=== PATIENT | male | born 1935 | race Caucasian/White ===

== ENCOUNTER 2022-02-03 15:05 | Inpatient (IN) ==
[2022-02-03] MEDS ORDERED: methylPREDNISolone 125 MG/2 ML VIAL IV STA (15:52)
[2022-02-03] MEDS ORDERED: ALBUT/IPRATROP 3MG/0.5MG NEB 3 ML VIAL NEB ONE (15:52)
[2022-02-03] MEDS ORDERED: SODIUM CHLORIDE 0.9% 1000ML 500 ML IV SCH (16:00)
--- NOTE | 2022-02-03 16:41 | XRay Report ---
XR humerus LT 2V CLINICAL HISTORY: pain brusing TECHNIQUE: 2 radiographic views of the left humerus were obtained. Comparison: None available at the time of this dictation. FINDINGS: There is no evidence for fracture, subluxation or dislocation. The visualized portion of the shoulder and elbow joints are unremarkable. There is normal bone mineralization. The overlying soft tissues a re unremarkable. IMPRESSION: No acute osseous injury ACT 112: Negative or not required by law. Electronically signed by: Rojelio Mixon M.D. 02/03/2022 4:40 PM
--- NOTE | 2022-02-03 16:42 | XRay Report ---
XR forearm LT 2V CLINICAL HISTORY: pain brusing TECHNIQUE: 2 views of the left forearm were obtained. Comparison: None available at the time of this dictation. FINDINGS: There is no evidence of acute fracture or dislocation. Joint spaces are well-preserved. No soft tissu e abnormality is seen. IMPRESSION: No evidence of acute osseous injury. ACT 112: Negative or not required by law. Electronically signed by: Rojelio Mixon M.D. 02/03/2022 4:41 PM
--- NOTE | 2022-02-03 17:08 | XRay Report ---
XR chest 1V portable CLINICAL HISTORY: Sepsis TECHNIQUE: Single frontal radiograph of the chest was obtained. Comparison: None available at the time of this dictation. FINDINGS: No lines and tubes are seen. Cardiomegaly is noted. The aortic arch is calcified. Prominence and ceph alization of the vasculature is seen. There are scattered airspace opacities throughout the lungs. No evidence of pleural effusion or pneumothorax. IMPRESSION: 1. Cardiomegaly and mild pulmonary edema. 2. Multifocal airspace opacities may represent atelectasis, pneumonia, and/or aspiration. ACT 112: Negative or not required by law. Electronically signed by: Rojelio Mixon M.D. 02/03/2022 5:07 PM
[2022-02-03 17:10] LABS: Base Excess VBG -2.6 mEq/L; HCO3 VBG 24 mmol/L; Hematocrit (blood only) 27.7 % (40.1-51.0); Hemoglobin 9.4 g/dl (14.0-18.0); Mean Corpuscular Hgb Conc 33.9 g/dL (32.0-36.0); Mean Corpuscular Volume 91.4 fL (80.0-100.0); Mean Platelet Volume 10.7 fL (9.4-12.4); Oxygen Saturation VBG < 60.0 %; PCO2 VBG 46 mmHg (38-50); PO2 VBG 24 mmHg; Platelet Count 186 K/uL (130-400); RDW Coefficient of Variation 13.6 % (11.5-14.5); RDW Standard Deviation 45.6 fL (36.4-46.3); Red Blood Count 3.03 M/uL (4.63-6.08); White Blood Count 10.41 K/ul (4.8-10.8); pH VBG 7.32 (7.36-7.41)
[2022-02-03 17:30] LABS: Albumin Level 3.8 gm/dl (3.4-5.0); BUN Creatinine Ratio 19.9 (10-20); Bilirubin Direct 0.4 mg/dl (0-0.2); Bilirubin,Total 1.3 mg/dl (0.2-1.0); Calcium 10.6 mg/dl (8.5-10.1); Creatinine Clr Calc Pharmacy 19.5 ml/min; Est GFR (African American) 35.4 ml/min; Est GFR (Non-African American) 30.5 ml/min; Magnesium 2.2 mg/dl (1.7-2.4); Phosphorus 4.1 mg/dl (2.5-4.9); Potassium 4.6 mmol/L (3.5-5.1); Total Protein 6.3 gm/dl (6.0-8.3)
[2022-02-03 17:50] LABS: Troponin I High Sensitivity 26.2 pg/ml (0-20)
[2022-02-03 18:03] LABS: Acanthocytes 2+; Basophils # (auto) 0.01 K/uL (0-0.2); Basophils % (auto) 0.1 %; Immature Granulocytes # (auto) 0.03 K/uL (0.00-0.02); Immature Granulocytes % (auto) 0.3 %; Lymphocytes # (auto) 0.26 K/uL (1.2-3.4); Lymphocytes % (auto) 2.5 %; Monocytes % (auto) 4.8 %; Neutrophils # (auto) 9.61 K/uL (1.4-6.5); Neutrophils % (auto) 92.3 %
[2022-02-03] MEDS ORDERED: PIPERACILLIN/TAZOBACTAM 4.5 GM/120 ML BAG IV ONE (18:09)
--- NOTE | 2022-02-03 18:31 | Electrocardiogram Report ---
Test Reason : Blood Pressure : / mmHG Vent. Rate : 089 BPM Atrial Rate : 089 BPM P-R Int : 152 ms QRS Dur : 082 ms QT Int : 346 ms P-R-T Axes : 058 -48 030 degrees QTc Int : 420 ms Poor data quality, interpretation may be adversely affected Normal sinus rhythm Left anterior fascicular block Abnormal ECG No previous ECGs available Confirmed by Yan Wolf ([id number]) on 02/03/2022 6:31:41 PM Referred By: Confirmed By:Heraclio Wolf
--- NOTE | 2022-02-03 19:22 | CT Scan Report ---
HEAD CT NONCONTRAST CT DOSE: HISTORY: Altered mental status. TECHNIQUE: Multiaxial CT images of the head were performed without the use of intravenous contrast. A utomated exposure control was utilized for this study. A dose lowering technique was utilized adheri ng to the principles of ALARA. Comparison: None. Findings: Trace fluid levels within the sphenoid sinuses. The mastoid air cells are clear. The calvar ium and skull base are intact. There is no mass, hematoma, midline shift, acute infarct. White matter hypodensity is nonspecific but suggestive of microvascular ischemic change. The ventricles and sulci demonstrate mild age-related involutional changes. Impression: No acute intracranial abnormality. Atrophy and microvascular ischemic changes. Trace fluid within the sphenoid sinuses. ACT 112: Negative or not required by law. Electronically signed by: Alo Zaragoza M.D. 02/03/2022 7:20 PM
[2022-02-03 20:12] LABS: Appearance Urine Clear (Clear); Bacteria Urine Automated Negative (Negative); Bilirubin Urine Negative (Negative); Blood Urine Negative (Negative); Color Urine Dark Yellow; Epithelial Cell Urine Auto 20-30 /lpf (0-5); Glucose Urine UA Negative (Negative); Ketones Urine Trace (Negative); Leukocyte Esterase Urine 1+ (Negative); Nitrite Urine Positive (Negative); Protein Urine Trace (Negative); Specific Gravity Urine 1.019 (1.000-1.030); Urobilinogen Urine Negative (Negative); pH Urine 5.5 (4.5-7.5)
[2022-02-03] MEDS ORDERED: SODIUM CHLORIDE 0.9% 1000ML 1,000 ML IV ONE (20:22)
[2022-02-03 20:34] LABS: Mucus Urine Present (None Prsent); RBC Urine Automated 0-4 /hpf (0-4)
--- NOTE | 2022-02-03 20:39 | CT Scan Report ---
CT chest diagnostic wo con, CT abd pelvis wo con CT DOSE: 2406.06 mGy.cm HISTORY: Shortness of breath, h/o spiculated mass. Elevated bilirubin. TECHNIQUE: Multiaxial CT images of the chest, abdomen, and pelvis were performed without contrast. A dose lowering technique was utilized adhering to the principles of ALARA. COMPARISON: None. FINDINGS: Chest CT: Suboptimal evaluation the chest due to the motion artifact and streak artifact from the pat ient's overlapping arms. No pneumothorax. No pleural effusions. Mild emphysema. Multiple scattered no dular and groundglass patchy airspace opacities most pronounced within the lung bases. This is consis tent with a pneumonia and could be due to acute on chronic aspiration. Partial opacification of the d istal bilateral lower lobe bronchi. There is a 3.7 cm spiculated mass within the left upper lobe whic h results in focal occlusion of the proximal lingular bronchi. The distal lingular bronchi are partia lly opacified. There is a second spiculated mass within the left lower lobe on image 198 measuring 2. 8 cm. Left upper extremity edema with a soft tissue hematoma medially. This appears to represent an i ntramuscular hematoma within the biceps muscle and measures 12 x 6.5 cm. Subcutaneous edema noted wit hin the left lateral chest wall. Calcified mediastinal lymph nodes are noted. No mediastinal lymphade nopathy. The heart is normal in size. No pericardial effusion. Mild calcified plaque within the hugh l caliber thoracic aorta. Moderate to severe esophageal distention with focal transition point at the gastroesophageal junction. The esophagus is filled with debris. Abdomen/pelvis CT: Suboptimal evaluation due to motion artifact and streak artifact from the patient' s overlapping arms. No pneumoperitoneum. No pneumatosis. No suspicious lytic are blastic osseous lesi ons. The unenhanced liver, spleen, adrenal glands, and pancreas are unremarkable. The gallbladder is mildly distended. No gallbladder wall thickening. No hydronephrosis. A 2.2 cm hypodense lesion within the upper pole the left kidney is incompletely characters on this noncontrast study but statisticall y represents a cyst. Mild aneurysmal dilatation of the abdominal aorta measuring 3.1 cm in diameter. Small curvilinear calcification within the mid abdominal aorta which could represent a chronic focal dissection. Moderate calcified plaque within the aorta and iliac arteries. The prostate gland is mild ly enlarged. The bladder is unremarkable. No significant pelvic free fluid. Suboptimal evaluation for bowel pathology due to the lack of intravenous and oral contrast. However, there is no definite stephen l wall thickening or obstruction. Colonic diverticulosis. No evidence for acute diverticulitis. No re troperitoneal lymphadenopathy. IMPRESSION: 1. There are 2 spiculated nodules/masses within the left upper and lower lobes as described above wit h the largest measuring 3.7 cm. This is highly suspicious for a primary bronchogenic malignancies. 2. Multiple scattered nodular and groundglass patchy airspace opacities most pronounced within the gianluca ng bases. This is consistent with a pneumonia and likely represents acute on chronic aspiration. 3. Moderate to severe distention of the esophagus which is filled with debris and demonstrates a foca l transition point at the gastroesophageal junction. This could be due to an underlying esophageal le norah or achalasia. Follow-up endoscopy recommended for further evaluation. 4. Left upper extremity edema with a 12 x 6 cm intramuscular hematoma within the left biceps. 5. 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 6. Colonic diverticulosis. No evidence for acute diverticulitis. 7. Additional findings as described above. ACT 112: Negative or not required by law. Electronically signed by: Alo Zaragoza M.D. 02/03/2022 8:38 PM
--- NOTE | 2022-02-03 20:54 | Emergency Department Note ---
Impression & Plan Sepsis, Aspiration pneumonia, Acute respiratory failure, Elevated lactic acid level, Elevated troponin ED Provider Note NAME: ELIESER FLORES AGE: 86 SEX: M ARRIVES VIA: Ambulance INFORMANT: Family, EMS ED PROVIDER(S): Carrillo Rainey MD CHIEF COMPLAINT: SOB PLAN: Disposition: Admit MEDICAL DECISION MAKING: The patient is a 86-year-old gentleman with a past medical history of schizophrenia, hypertension, hyperlipidemia, remote smoking history, recent diagnosis of spiculated lung mass undergoing evaluation who presents emergency department from [facility] acute rehab for worsening shortness of breath today. The patient's daughter did arrive to the bedside and also reports that the bruising on his left arm was not present when she saw him on Wednesday. She reports that her father told her that he had fallen but there was no report of this from staff. He was admitted to [facility] over the past week in the setting of being admitted to [facility] following recurrent falls and had imaging that demonstrated his spiculated lung mass. Patient's daughter understands that he is to have an outpatient PET scan but this has yet to occur. She further adds that she was told there is suspicion that he may be aspirating. She reports she was not on oxygen at [facility] until today. On arrival the patient is acute on chronic ill-appearing, cachectic, in moderate respiratory distress with respiratory rate in the 30s, heart in the 100s with O2 saturation in the low 90s on 4 L nasal cannula. He has bilateral wheezes and rhonchi. EKG without overt acute ischemia. Chest x-ray is suspicious for multifocal pneumonia. WBC and platelets within normal limits. H/H 9.4/27.7 without recent values for comparison. VBG is unremarkable. Chemistry without metabolic acidosis. 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 Initial lactic acid 3.9 with delta 3-hour repeat value increased to 4.4. Total bili 1.3 with direct bilirubin 0.4, nonspecific and alk phos within normal limits. AST and ALT are unremarkable. CPK within normal limits. High-sensitivity troponin 26.2, nonspecific. BNP 153, nonspecific. Procalcitonin within normal limits. UA is suspicious for infection with WBCs though epithelial cells present and no bacteria. CT of the chest and abdomen pelvis without contrast were performed and demonstrated known to spiculated nodule/masses within the left upper and lower lobes with the largest measuring 3.7 cm and is highly suspicious for primary bronchogenic malignancies. Additional characterization of airspace opacities seen and is consistent with pneumonia and likely represents acute on chronic aspiration. There is also noted moderate to severe distention of the esophagus with fluid-filled debris with narrowing of the GE junction that may be related to an esophageal lesion or achalasia. Incidental note of mild aneurysmal dilatation of the abdominal aorta is seen. The patient was treated empirically with IV Zosyn. He was additionally treated with Solu-Medrol and DuoNeb for component of bronchospasm. He was given IV fluid hydration cautiously in the setting of his CKD. 30 cc/kg was deferred. However, the patient's tachypnea and work of breathing did not show significant improvement. Given the persistence of his dyspnea and work of breathing a trial of BiPAP was performed. He was given additional IV fluid hydration as bedside cardiac ultrasound demonstrates near 100% respiratory variation of IVC. Patient's work breathing did seem to improve somewhat on BiPAP. I did speak in detail with the patient's family regarding his critical illness a nd introduced discussion regarding goals of care. [facility]. Ultimately additional family did arrive and were at the bedside and upon further discussion they did feel comfortable and agreed that the patient would want to be DNR/DNI at this point. Admitting team was updated who also confirmed DNR/DNI status. Triage Nursing notes reviewed and agree them. Prior medical records reviewed Vital Signs: reviewed and remarkable for tachypnea, tachycardia. Differential diagnosis: Reactive airway disease, pneumonia, pneumothorax, COPD, CHF, infections, cardiac ischemia, pulmonary embolism, musculoskeletal, gastrointestinal, as well as other pathologies. ER treatment provided: See below. Diagnostics interpreted by me: ECG: Normal sinus rhythm, 89 bpm, no ectopy, left anterior fascicular block, no overt ST elevation or depression, QTC 420, QRS 82. Cardiac Monitoring: An order for continuous cardiac monitoring was placed and demonstrated normal sinus rhythm, 89 bpm, no ectopy. Laboratory studies: See below Imaging studies: See below Consultation(s): [facility] the [facility] for admission. HPI: The patient is a 86-year-old gentleman with a past medical history of schizophrenia, hypertension, hyperlipidemia, remote smoking history, recent diagnosis of spiculated lung mass undergoing evaluation who presents emergency department from [facility] acute rehab for worsening shortness of breath today. The patient's daughter did arrive to the bedside and also reports that the bruising on his left arm was not present when she saw him on Wednesday. She repo rts that her father told her that he had fallen but there was no report of this from staff. He was admitted to [facility] over the past week in the setting of being admitted to [facility] following recurrent falls and had imaging that demonstrated his spiculated lung mass. Patient's daughter understands that he is to have an outpatient PET scan but this has yet to occur. She further add s that she was told there is suspicion that he may be aspirating. She reports she was not on oxygen at [facility] until today. ROS: See above HPI for pertinent positives & negatives. A total of 10 systems reviewed and were otherwise negative. VITALS:See Below PHYSICAL EXAMINATION: GENERAL: Awake, alert, acute on chronically ill-appearing, cachectic. Moderate respiratory distress. HENT: Normocephalic, atraumatic. Oropharynx with dry mucous membranes and otherwise unremarkable. EYES: Normal conjunctiva. Sclera non-icteric. NECK: Supple. No nuchal rigidity. FROM. No JVD. RESPIRATORY: Bilateral wheezes and rhonchi. Tachypneic with increased work of breathing. CARDIAC: Tachycardic rate, normal rhythm. Extremities warm and well perfused. Pulses equal. ABDOMEN: Soft, non-distended. No tenderness to palpation. No rebound or guarding. No masses. RECTAL: Deferred. MUSCULOSKELETAL: Chest examination reveals no tenderness. The back is symmetrical on inspection without obvious abnormality. There is no CVA tenderness to palpation. No joint edema. LOWER EXTREMITIES: Calves are equal size bilaterally and non-tender. No edema. No discoloration. NEURO: Normal sensorium. No sensory or motor deficits noted. SKIN: No rash or jaundice noted. ED COURSE: Critical Care: I have personally spent greater than 75 minutes of critical care time in the direct management of this patient. This includes bedside care, interpretation of diagnostic studies, and testing, discussion with consultants, patient, and family members, and other required patient management activities. This 75 minutes is in excess of all separately billable procedures. Carrillo Rainey MD Past Med/Surg History Medical History CKD (chronic kidney disease) Hyperlipidemia Lung mass Recurrent falls Schizophrenia Family History Other Family history non-contributory Social History Smoking Status: Former smoker Do You Dip or Chew Tobacco: No; Hx Alcohol Use: No Hx Substance Use: No Communication Ability: Impaired Beliefs That Will Affect Care: None Current Living Situation: [facility] Other Information That Helps Us Care for You: No Assistive Devices: CPAP Allergies Allergies Allergy/AdvReac Type Severity Reaction Status Date / Time No Known Allergies Allergy Unverified 02/03/22 16:08 Home Meds Home Medications Medication Instructions Recorded Confirmed aspirin 81 mg chewable tablet 81 mg PO DAILY 02/03/22 02/03/22 (Aspirin Childrens) atorvastatin 40 mg tablet 40 mg PO HS 02/03/22 02/03/22 cholecalciferol (vitamin D3) 50 50 mcg PO DAILY 02/03/22 02/03/22 mcg (2,000 unit) capsule (Vitamin D3) docusate sodium 100 mg capsule 100 mg PO BID 02/03/22 02/03/22 enoxaparin 40 mg/0.4 mL 40 mg subcut DAILY 02/03/22 02/03/22 subcutaneous syringe famotidine 20 mg tablet 20 mg PO DAILY 02/03/22 02/03/22 fluticasone furoate 200 1 inh inhalation DAILY 02/03/22 02/03/22 mcg/actuation blister powder for inhalation guaifenesin 100 mg/5 mL oral liquid 300 mg PO QID 02/03/22 02/03/22 risperidone 4 mg tablet 4 mg PO Q12 02/03/22 02/03/22 trihexyphenidyl 2 mg tablet 2 mg PO Q8 02/03/22 02/03/22 vitamin B complex and vitamin C 1 cap PO DAILY 02/03/22 02/03/22 no.20-folic acid 1 mg capsule (Renal Caps) Results & Data (ED) Vital Signs Vital Signs - 24 hr 02/03/22 15:15 02/03/22 15:15 02/03/22 15:22 Temperature 36.6 C Temperature Source Oral Pulse Rate 91 H Pulse Rate [Right Finger] Pulse Rate from SpO2 Sensor Pulse Rhythm Regular Pulse Strength Normal Respiratory Rate 34 H Respiratory Effort / Characteristics Non-Labored Spontaneous Spontaneous Respiratory Depth Normal Normal Respiratory Pattern Tachypnea Blood Pressure 134/69 Blood Pressure [Right Arm] Blood Pressure Mean 90 Blood Pressure Mean [Right Arm] Pulse Oximetry 94 94 Oxygen Delivery Method Nasal Cannula Nasal Cannula Oxygen Flow Rate 4 4 Fraction of Inspired Oxygen Sepsis New/Unexplained Change in Mental Status Yes Sepsis Action Taken by Nursing Physician Notified 02/03/22 16:22 02/03/22 15:52 02/03/22 15:38 Temperature Temperature Source Pulse Rate 83 Pulse Rate [Right Finger] 81 Pulse Rate from SpO2 Sensor 83 Pulse Rhythm Pulse Strength Respiratory Rate 28 H 34 H Respiratory Effort / Characteristics Spontaneous Respiratory Depth Respiratory Pattern Blood Pressure Blood Pressure [Right Arm] Blood Pressure Mean Blood Pressure Mean [Right Arm] Pulse Oximetry 93 95 94 Oxygen Delivery Method Nasal Cannula Nasal Cannula Oxygen Flow Rate 4 5 Fraction of Inspired Oxygen Sepsis New/Unexplained Change in Mental Status Sepsis Action Taken by Nursing 02/03/22 15:45 02/03/22 16:00 02/03/22 16:00 Temperature Temperature Source Pulse Rate 89 82 Pulse Rate [Right Finger] Pulse Rate from SpO2 Sensor 89 83 Pulse Rhythm Pulse Strength Respiratory Rate 36 H 29 H Respiratory Effort / Characteristics Respiratory Depth Respiratory Pattern Blood Pressure 149/73 H Blood Pressure [Right Arm] Blood Pressure Mean 98 Blood Pressure Mean [Right Arm] Pulse Oximetry 96 92 Oxygen Delivery Method Oxygen Flow Rate Fraction of Inspired Oxygen Sepsis New/Unexplained Change in Mental Status Sepsis Action Taken by Nursing 02/03/22 16:15 02/03/22 16:30 02/03/22 16:30 Temperature Temperature Source Pulse Rate 92 H 97 H Pulse Rate [Right Finger] Pulse Rate from SpO2 Sensor 93 H 98 H Pulse Rhythm Pulse Strength Respiratory Rate 33 H 37 H Respiratory Effort / Characteristics Respiratory Depth Respiratory Pattern Blood Pressure 150/79 H Blood Pressure [Right Arm] Blood Pressure Mean 102 Blood Pressure Mean [Right Arm] Pulse Oximetry 94 96 Oxygen Delivery Method Oxygen Flow Rate Fraction of Inspired Oxygen Sepsis New/Unexplained Change in Mental Status Sepsis Action Taken by Nursing 02/03/22 16:45 02/03/22 17:00 02/03/22 17:00 Temperature Temperature Source Pulse Rate 97 H 108 H Pulse Rate [Right Finger] Pulse Rate from SpO2 Sensor 98 H 108 H Pulse Rhythm Pulse Strength Respiratory Rate 35 H 31 H Respiratory Effort / Characteristics Respiratory Depth Respiratory Pattern Blood Pressure 140/74 Blood Pressure [Right Arm] Blood Pressure Mean 96 Blood Pressure Mean [Right Arm] Pulse Oximetry 97 96 Oxygen Delivery Method Oxygen Flow Rate Fraction of Inspired Oxygen Sepsis New/Unexplained Change in Mental Status Sepsis Action Taken by Nursing 02/03/22 17:15 02/03/22 17:30 02/03/22 17:30 Temperature Temperature Source Pulse Rate 113 H 136 H Pulse Rate [Right Finger] Pulse Rate from SpO2 Sensor 113 H 135 H Pulse Rhythm Pulse Strength Respiratory Rate 34 H 31 H Respiratory Effort / Characteristics Respiratory Depth Respiratory Pattern Blood Pressure 135/80 Blood Pressure [Right Arm] Blood Pressure Mean 98 Blood Pressure Mean [Right Arm] Pulse Oximetry 96 97 Oxygen Delivery Method Oxygen Flow Rate Fraction of Inspired Oxygen Sepsis New/Unexplained Change in Mental Status Sepsis Action Taken by Nursing 02/03/22 17:45 02/03/22 18:00 02/03/22 19:15 Temperature Temperature Source Pulse Rate 128 H Pulse Rate [Right Finger] 134 H 117 H Pulse Rate from SpO2 Sensor 129 H Pulse Rhythm Pulse Strength Respiratory Rate 34 H 34 H 18 Respiratory Effort / Characteristics Labored Respiratory Depth Normal Respiratory Pattern Blood Pressure Blood Pressure [Right Arm] 138/84 143/73 H Blood Pressure Mean Blood Pressure Mean [Right Arm] 102 96 Pulse Oximetry 99 100 94 Oxygen Delivery Method Nasal Cannula Nasal Cannula Oxygen Flow Rate 4 4 Fraction of Inspired Oxygen Sepsis New/Unexplained Change in Mental Status Sepsis Action Taken by Nursing 02/03/22 20:30 02/03/22 21:00 Temperature Temperature Source Pulse Rate 116 H Pulse Rate [Right Finger] 109 H Pulse Rate from SpO2 Sensor Pulse Rhythm Pulse Strength Respiratory Rate 28 H 31 H Respiratory Effort / Characteristics Respiratory Depth Respiratory Pattern Blood Pressure Blood Pressure [Right Arm] 114/68 Blood Pressure Mean Blood Pressure Mean [Right Arm] 83 Pulse Oximetry 98 96 Oxygen Delivery Method Oxygen Flow Rate Fraction of Inspired Oxygen 40 Sepsis New/Unexplained Change in Mental Status Sepsis Action Taken by Nursing Laboratory Data Attestation: I reviewed the patient's lab results. Result diagrams: 02/03/22 16:51 02/03/22 16:51 Lab Results 02/03/22 02/03/22 02/03/22 Range/Units 16:51 16:51 16:51 WBC 10.41 (4.8-10.8) K/ul RBC 3.03 L (4.63-6.08) M/uL Hgb 9.4 L (14.0-18.0) g/dl Hct 27.7 L (40.1-51.0) % MCV 91.4 (80.0-100.0) fL MCH 31.0 (25.0-34.0) pg MCHC 33.9 (32.0-36.0) g/dL RDW Std Deviation 45.6 (36.4-46.3) fL RDW Coeff of Bebeto 13.6 (11.5-14.5) % Plt Count 186 (130-400) K/uL MPV 10.7 (9.4-12.4) fL Immature Gran % (Auto) 0.3 % Neut % (Auto) 92.3 % Lymph % (Auto) 2.5 % Calhoun % (Auto) 4.8 % Eos % (Auto) 0.0 % Baso % (Auto) 0.1 % Neut # (Auto) 9.61 H (1.4-6.5) K/uL Lymph # (Auto) 0.26 L (1.2-3.4) K/uL Cal[place]oun # (Auto) 0.50 (0.24-0.82) K/uL Eos # (Auto) 0.00 (0-0.50) K/uL Baso # (Auto) 0.01 (0-0.2) K/uL Immature Gran # (Auto) 0.03 H (0.00-0.02) K/uL Acanthocytes (Spur) 2+ PT (9.0-12.0) Seconds INR (0.9-1.1) APTT (21.0-31.0) Seconds PTT Ratio VBG pH (7.36-7.41) VBG pCO2 (38-50) mmHg VBG pO2 mmHg VBG HCO3 mmol/L VBG O2 Saturation % VBG Base Excess mEq/L Sodium 140 (136-145) mmol/L Potassium 4.6 (3.5-5.1) mmol/L Chloride 104 (98-107) mmol/L Carbon Dioxide 24 (21-32) mmol/L Anion Gap 12 H (3-11) BUN 39 H (6-23) mg/dl Creatinine 1.96 H (0.6-1.4) mg/dl Est Cr Clr Drug Dosing 19.5 ml/min Est GFR ( Amer) 35.4 ml/min Est GFR (Non-Af Amer) 30.5 ml/min BUN/Creatinine Ratio 19.9 (10-20) Glucose 207 H (70-99(Fasting)) mg/dl Lactate 3.9 H* (0.4-2.0) mmol/L Calcium 10.6 H (8.5-10.1) mg/dl Phosphorus 4.1 (2.5-4.9) mg/dl Magnesium 2.2 (1.7-2.4) mg/dl Total Bilirubin 1.3 H (0.2-1.0) mg/dl Direct Bilirubin 0.4 H (0-0.2) mg/dl AST 25 (13-39) U/L ALT 34 (7-52) U/L Alkaline Phosphatase 74 (34-104) U/L Total Creatine Kinase 112 (30-223) U/L Troponin I High Sens 26.2 H (0-20) pg/ml B-Natriuretic Peptide (0-100) pg/ml Total Protein 6.3 (6.0-8.3) gm/dl Albumin 3.8 (3.4-5.0) gm/dl Lipase 8 L (11-82) U/L Procalcitonin (0-0.5) ng/ml Urine Color Urine Appearance (Clear) Urine pH (4.5-7.5) Ur Specific Hornell (1.000-1.030) Urine Protein (Negative) Urine Glucose (UA) (Negative) Urine Ketones (Negative) Urine Blood (Negative) Urine Nitrite (Negative) Urine Bilirubin (Negative) Urine Urobilinogen (Negative) Ur Leukocyte Esterase (Negative) Urine WBC (Auto) (0-5) /hpf Urine RBC (Auto) (0-4) /hpf U Hyaline Cast (Auto) (0-5) /lpf U Epithel Cells (Auto) (0-5) /lpf Urine Bacteria (Auto) (Negative) Urine Mucus (None Prsent) Urine Yeast SARS-CoV-2, RNA, NAAT (NEGATIVE) 02/03/22 02/03/22 02/03/22 Range/Units 16:51 16:51 16:51 WBC (4.8-10.8) K/ul RBC (4.63-6.08) M/uL Hgb (14.0-18.0) g/dl Hct (40.1-51.0) % MCV (80.0-100.0) fL MCH (25.0-34.0) pg MCHC (32.0-36.0) g/dL RDW Std Deviation (36.4-46.3) fL RDW Coeff of Bebeto (11.5-14.5) % Plt Count (130-400) K/uL MPV (9.4-12.4) fL Immature Gran % (Auto) % Neut % (Auto) % Lymph % (Auto) % Calhoun % (Auto) % Eos % (Auto) % Baso % (Auto) % Neut # (Auto) (1.4-6.5) K/uL Lymph # (Auto) (1.2-3.4) K/uL Calhoun # (Auto) (0.24-0.82) K/uL Eos # (Auto) (0-0.50) K/uL Baso # (Auto) (0-0.2) K/uL Immature Gran # (Auto) (0.00-0.02) K/uL Acanthocytes (Spur) PT (9.0-12.0) Seconds INR (0.9-1.1) APTT (21.0-31.0) Seconds PTT Ratio VBG pH 7.32 L (7.36-7.41) VBG pCO2 46 (38-50) mmHg VBG pO2 24 mmHg VBG HCO3 24 mmol/L VBG O2 Saturation < 60.0 % VBG Base Excess -2.6 mEq/L Sodium (136-145) mmol/L Potassium (3.5-5.1) mmol/L Chloride (98-107) mmol/L Carbon Dioxide (21-32) mmol/L Anion Gap (3-11) BUN (6-23) mg/dl Creatinine (0.6-1.4) mg/dl Est Cr Clr Drug Dosing ml/min Est GFR ( Amer) ml/min Est GFR (Non-Af Amer) ml/min BUN/Creatinine Ratio (10-20) Glucose (70-99(Fasting)) mg/dl Lactate (0.4-2.0) mmol/L Calcium (8.5-10.1) mg/dl Phosphorus (2.5-4.9) mg/dl Magnesium (1.7-2.4) mg/dl Total Bilirubin (0.2-1.0) mg/dl Direct Bilirubin (0-0.2) mg/dl AST (13-39) U/L ALT (7-52) U/L Alkaline Phosphatase (34-104) U/L Total Creatine Kinase (30-223) U/L Troponin I High Sens (0-20) pg/ml B-Natriuretic Peptide 153 H (0-100) pg/ml Total Protein (6.0-8.3) gm/dl Albumin (3.4-5.0) gm/dl Lipase (11-82) U/L Procalcitonin 0.34 (0-0.5) ng/ml Urine Color Urine Appearance (Clear) Urine pH (4.5-7.5) Ur Specific [place] (1.000-1.030) Urine Protein (Negative) Urine Glucose (UA) (Negative) Urine Ketones (Negative) Urine Blood (Negative) Urine Nitrite (Negative) Urine Bilirubin (Negative) Urine Urobilinogen (Negative) Ur Leukocyte Esterase (Negative) Urine WBC (Auto) (0-5) /hpf Urine RBC (Auto) (0-4) /hpf U Hyaline Cast (Auto) (0-5) /lpf U Epithel Cells (Auto) (0-5) /lpf Urine Bacteria (Auto) (Negative) Urine Mucus (None Prsent) Urine Yeast SARS-CoV-2, RNA, NAAT (NEGATIVE) 02/03/22 02/03/22 02/03/22 Range/Units 16:53 19:25 19:35 WBC (4.8-10.8) K/ul RBC (4.63-6.08) M/uL Hgb (14.0-18.0) g/dl Hct (40.1-51.0) % MCV (80.0-100.0) fL MCH (25.0-34.0) pg MCHC (32.0-36.0) g/dL RDW Std Deviation (36.4-46.3) fL RDW Coeff of Bebeto (11.5-14.5) % Plt Count (130-400) K/uL MPV (9.4-12.4) fL Immature Gran % (Auto) % Neut % (Auto) % Lymph % (Auto) % Calhoun % (Auto) % Eos % (Auto) % Baso % (Auto) % Neut # (Auto) (1.4-6.5) K/uL Lymph # (Auto) (1.2-3.4) K/uL Calhoun # (Auto) (0.24-0.82) K/uL Eos # (Auto) (0-0.50) K/uL Baso # (Auto) (0-0.2) K/uL Immature Gran # (Auto) (0.00-0.02) K/uL Acanthocytes (Spur) PT 11.2 (9.0-12.0) Seconds INR 1.1 (0.9-1.1) APTT 21.1 (21.0-31.0) Seconds PTT Ratio 0.8 VBG pH (7.36-7.41) VBG pCO2 (38-50) mmHg VBG pO2 mmHg VBG HCO3 mmol/L VBG O2 Saturation % VBG Base Excess mEq/L Sodium (136-145) mmol/L Potassium (3.5-5.1) mmol/L Chloride (98-107) mmol/L Carbon Dioxide (21-32) mmol/L Anion Gap (3-11) BUN (6-23) mg/dl Creatinine (0.6-1.4) mg/dl Est Cr Clr Drug Dosing ml/min Est GFR ( Amer) ml/min Est GFR (Non-Af Amer) ml/min BUN/Creatinine Ratio (10-20) Glucose (70-99(Fasting)) mg/dl Lactate 4.4 H* (0.4-2.0) mmol/L Calcium (8.5-10.1) mg/dl Phosphorus (2.5-4.9) mg/dl Magnesium (1.7-2.4) mg/dl Total Bilirubin (0.2-1.0) mg/dl Direct Bilirubin (0-0.2) mg/dl AST (13-39) U/L ALT (7-52) U/L Alkaline Phosphatase (34-104) U/L Total Creatine Kinase (30-223) U/L Troponin I High Sens (0-20) pg/ml B-Natriuretic Peptide (0-100) pg/ml Total Protein (6.0-8.3) gm/dl Albumin (3.4-5.0) gm/dl Lipase (11-82) U/L Procalcitonin (0-0.5) ng/ml Urine Color Dark Yellow Urine Appearance Clear (Clear) Urine pH 5.5 (4.5-7.5) Ur Specific [place]ell 1.019 (1.000-1.030) Urine Protein Trace H (Negative) Urine Glucose (UA) Negative (Negative) Urine Ketones Trace H (Negative) Urine Blood Negative (Negative) Urine Nitrite Positive A (Negative) Urine Bilirubin Negative (Negative) Urine Urobilinogen Negative (Negative) Ur Leukocyte Esterase 1+ H (Negative) Urine WBC (Auto) 10-30 H (0-5) /hpf Urine RBC (Auto) 0-4 (0-4) /hpf U Hyaline Cast (Auto) 10-30 H (0-5) /lpf U Epithel Cells (Auto) 20-30 H (0-5) /lpf Urine Bacteria (Auto) Negative (Negative) Urine Mucus Present A (None Prsent) Urine Yeast Not Reportable SARS-CoV-2, RNA, NAAT (NEGATIVE) 02/03/22 Range/Units 20:50 WBC (4.8-10.8) K/ul RBC (4.63-6.08) M/uL Hgb (14.0-18.0) g/dl Hct (40.1-51.0) % MCV (80.0-100.0) fL MCH (25.0-34.0) pg MCHC (32.0-36.0) g/dL RDW Std Deviation (36.4-46.3) fL RDW Coeff of Bebeto (11.5-14.5) % Plt Count (130-400) K/uL MPV (9.4-12.4) fL Immature Gran % (Auto) % Neut % (Auto) % Lymph % (Auto) % Calhoun % (Auto) % Eos % (Auto) % Baso % (Auto) % Neut # (Auto) (1.4-6.5) K/uL Lymph # (Auto) (1.2-3.4) K/uL Calhoun # (Auto) (0.24-0.82) K/uL Eos # (Auto) (0-0.50) K/uL Baso # (Auto) (0-0.2) K/uL Immature Gran # (Auto) (0.00-0.02) K/uL Acanthocytes (Spur) PT (9.0-12.0) Seconds INR (0.9-1.1) APTT (21.0-31.0) Seconds PTT Ratio VBG pH (7.36-7.41) VBG pCO2 (38-50) mmHg VBG pO2 mmHg VBG HCO3 mmol/L VBG O2 Saturation % VBG Base Excess mEq/L Sodium (136-145) mmol/L Potassium (3.5-5.1) mmol/L Chloride (98-107) mmol/L Carbon Dioxide (21-32) mmol/L Anion Gap (3-11) BUN (6-23) mg/dl Creatinine (0.6-1.4) mg/dl Est Cr Clr Drug Dosing ml/min Est GFR ( Amer) ml/min Est GFR (Non-Af Amer) ml/min BUN/Creatinine Ratio (10-20) Glucose (70-99(Fasting)) mg/dl Lactate (0.4-2.0) mmol/L Calcium (8.5-10.1) mg/dl Phosphorus (2.5-4.9) mg/dl Magnesium (1.7-2.4) mg/dl Total Bilirubin (0.2-1.0) mg/dl Direct Bilirubin (0-0.2) mg/dl AST (13-39) U/L ALT (7-52) U/L Alkaline Phosphatase (34-104) U/L Total Creatine Kinase (30-223) U/L Troponin I High Sens (0-20) pg/ml B-Natriuretic Peptide (0-100) pg/ml Total Protein (6.0-8.3) gm/dl Albumin (3.4-5.0) gm/dl Lipase (11-82) U/L Procalcitonin (0-0.5) ng/ml Urine Color Urine Appearance (Clear) Urine pH (4.5-7.5) Ur Specific [place] (1.000-1.030) Urine Protein (Negative) Urine Glucose (UA) (Negative) Urine Ketones (Negative) Urine Blood (Negative) Urine Nitrite (Negative) Urine Bilirubin (Negative) Urine Urobilinogen (Negative) Ur Leukocyte Esterase (Negative) Urine WBC (Auto) (0-5) /hpf Urine RBC (Auto) (0-4) /hpf U Hyaline Cast (Auto) (0-5) /lpf U Epithel Cells (Auto) (0-5) /lpf Urine Bacteria (Auto) (Negative) Urine Mucus (None Prsent) Urine Yeast SARS-CoV-2, RNA, NAAT POSITIVE A* (NEGATIVE) Administered Medications Piperacillin Sod/Tazobactam (Sod 3.375 gm/ Dextrose) 115 mls @ 28.75 mls/hr IV Q12H [facility]; Protocol Stop: 02/11/22 01:59 Last Admin: 02/03/22 23:56 Dose: 28.8 mls/hr Documented By: DANIEL Doxycycline Hyclate 100 mg/ (Dextrose) 110 mls @ 50 mls/hr IV Q12H [facility] Stop: 02/10/22 22:59 Last Admin: 02/03/22 23:57 Dose: 50 mls/hr Documented By: DANIEL Dextrose/Sodium Chloride (D5w And 1/2nss) 1,000 mls @ 100 mls/hr IV .Q10H [facility] Stop: 03/05/22 22:30 Last Admin: 02/03/22 23:58 Dose: 100 mls/hr Documented By: DANIEL Trihexyphenidyl HCl (Trihexyphenidyl Hcl 2 Mg Tab) 2 mg PO Q8 [facility] Stop: 03/05/22 22:30 Last Admin: 02/03/22 23:59 Dose: 2 mg Documented By: DANIEL Discontinued Medications Albuterol (Albut/Ipratrop 3mg/0.5mg Neb 3 Ml Vial) 12 ml NEB ONE ONE; Protocol Stop: 02/03/22 15:53 Last Admin: 02/03/22 16:22 Dose: 12 ml Documented By: RACHELE Diltiazem HCl (Diltiazem Hcl 5 Mg/Ml 5 Ml Vial) 10 mg IV NOW STA Stop: 02/03/22 23:24 Last Admin: 02/04/22 00:23 Dose: 10 mg Documented By: DANIEL Co-signed By: ARR Sodium Chloride (Nss 1000ml) 500 mls @ 999 mls/hr IV .Q31M DERECK Stop: 02/03/22 16:30 Last Infusion: 02/03/22 17:53 Dose: 0 mls/hr Documented By: Admin: 02/03/22 17:06 Dose: 999 mls/hr Documented By: HS Piperacillin Sod/Tazobactam Sod (Zosyn) 4.5 gm in 120 mls @ 240 mls/hr IV NOW ONE Stop: 02/03/22 18:38 Last Infusion: 02/03/22 21:09 Dose: 0 mls/hr Documented By: Admin: 02/03/22 18:38 Dose: 240 mls/hr Documented By: MAGDALENE Sodium Chloride (Nss 1000ml) 1,000 mls @ 999 mls/hr IV .Q1H1M ONE Stop: 02/03/22 21:22 Last Admin: 02/03/22 20:54 Dose: 999 mls/hr Documented By: NITESH Sodium Chloride (Nss) 500 mls @ 500 mls/hr IV .Q1H DERECK Stop: 02/04/22 00:29 Last Admin: 02/03/22 23:58 Dose: 500 mls/hr Documented By: DANIEL Methylprednisolone (Methylprednisolone 125 Mg/2 Ml Vial) 125 mg IV NOW STA Stop: 02/03/22 15:53 Last Admin: 02/03/22 17:06 Dose: 125 mg Documented By: HS Imaging Data Radiologist's Impression: Forearm X-Ray 02/03/22 15:51 XR forearm LT 2V CLINICAL HISTORY: pain brusing TECHNIQUE: 2 views of the left forearm were obtained. Comparison: None available at the time of this dictation. FINDINGS: There is no evidence of acute fracture or dislocation. Joint spaces are well- preserved. No soft tissue abnormality is seen. IMPRESSION: No evidence of acute osseous injury. ACT 112: Negative or not required by law. Electronically signed by: Rojelio Mixon M.D. 02/03/2022 4:41 PM Humerus X-Ray 02/03/22 15:51 XR humerus LT 2V CLINICAL HISTORY: pain brusing TECHNIQUE: 2 radiographic views of the left humerus were obtained. Comparison: None available at the time of this dictation. FINDINGS: There is no evidence for fracture, subluxation or dislocation. The visualized portion of the shoulder and elbow joints are unremarkable. There is normal bone mineralization. The overlying soft tissues are unremarkable. IMPRESSION: No acute osseous injury ACT 112: Negative or not required by law. Electronically signed by: Rojelio Mixon M.D. 02/03/2022 4:40 PM Chest X-Ray 02/03/22 15:52 XR chest 1V portable CLINICAL HISTORY: Sepsis TECHNIQUE: Single frontal radiograph of the chest was obtained. Comparison: None available at the time of this dictation. FINDINGS: No lines and tubes are seen. Cardiomegaly is noted. The aortic arch is calcified. Prominence and cephalization of the vasculature is seen. There are scattered airspace opacities throughout the lungs. No evidence of pleural effusion or pneumothorax. IMPRESSION: 1. Cardiomegaly and mild pulmonary edema. 2. Multifocal airspace opacities may represent atelectasis, pneumonia, and/or aspiration. ACT 112: Negative or not required by law. Electronically signed by: Rojelio iMxon M.D. 02/03/2022 5:[address] 02/03/22 15:[address] DOSE: HISTORY: Altered mental status. TECHNIQUE: Multiaxial CT images of the head were performed without the use of intravenous contrast. Automated exposure control was utilized for this study. A dose lowering technique was utilized adhering to the principles of ALARA. Comparison: None. Findings: Trace fluid levels within the sphenoid sinuses. The mastoid air cells are clear. The calvarium and skull base are intact. There is no mass, hematoma, midline shift, acute infarct. White matter hypodensity is nonspecific but suggestive of microvascular ischemic change. The ventricles and sulci demonstrate mild age-related involutional changes. Impression: No acute intracranial abnormality. Atrophy and microvascular ischemic changes. Trace fluid within the sphenoid sinuses. ACT 112: Negative or not required by law. Electronically signed by: Alo Zaragoza M.D. 02/03/2022 7:[address] 02/03/22 18:08 CT chest diagnostic wo con, CT abd pelvis wo con CT DOSE: 2406.06 mGy.cm HISTORY: Shortness of breath, h/o spiculated mass. Elevated bilirubin. TECHNIQUE: Multiaxial CT images of the chest, abdomen, and pelvis were performed without contrast. A dose lowering technique was utilized adhering to the principles of ALARA. COMPARISON: None. FINDINGS: Chest CT: Suboptimal evaluation the chest due to the motion artifact and streak artifact from the patient's overlapping arms. No pneumothorax. No pleural effusions. Mild emphysema. Multiple scattered nodular and groundglass patchy airspace opacities most pronounced within the lung bases. This is consistent with a pneumonia and could be due to acute on chronic aspiration. Partial opacification of the distal bilateral lower lobe bronchi. There is a 3.7 cm spiculated mass within the left upper lobe which results in focal occlusion of the proximal lingular bronchi. The distal lingular bronchi are partially opacified. There is a second spiculated mass within the left lower lobe on image 198 measuring 2.8 cm. Left upper extremity edema with a soft tissue hematoma medially. This appears to represent an intramuscular hematoma within the biceps muscle and measures 12 x 6.5 cm. Subcutaneous edema noted within the left lateral chest wall. Calcified mediastinal lymph nodes are noted. No mediastinal lymphadenopathy. The heart is normal in size. No pericardial effusion. Mild calcified plaque within the normal caliber thoracic aorta. Moderate to severe esophageal distention with focal transition point at the gastroesophageal junction. The esophagus is filled with debris. Abdomen/pelvis CT: Suboptimal evaluation due to motion artifact and streak artifact from the patient's overlapping arms. No pneumoperitoneum. No pneumatosis. No suspicious lytic are blastic osseous lesions. The unenhanced liver, spleen, adrenal glands, and pancreas are unremarkable. The gallbladder is mildly distended. No gallbladder wall thickening. No hydronephrosis. A 2.2 cm hypodense lesion within the upper pole the left kidney is incompletely characters on this noncontrast study but statistically represents a cyst. Mild aneurysmal dilatation of the abdominal aorta measuring 3.1 cm in diameter. Small curvilinear calcification within the mid abdominal aorta which could represent a chronic focal dissection. Moderate calcified plaque within the aorta and iliac arteries. The prostate gland is mildly enlarged. The bladder is unremarkable. No significant pelvic free fluid. Suboptimal evaluation for bowel pathology due to the lack of intravenous and oral contrast. However, there is no definite bowel wall thickening or obstruction. Colonic diverticulosis. No evidence for acute diverticulitis. No retroperitoneal lymphadenopathy. IMPRESSION: 1. There are 2 spiculated nodules/masses within the left upper and lower lobes as described above with the largest measuring 3.7 cm. This is highly suspicious for a primary bronchogenic malignancies. 2. Multiple scattered nodular and groundglass patchy airspace opacities most pronounced within the lung bases. This is consistent with a pneumonia and likely represents acute on chronic aspiration. 3. Moderate to severe distention of the esophagus which is filled with debris and demonstrates a focal transition point at the gastroesophageal junction. This could be due to an underlying esophageal lesion or achalasia. Follow-up endoscopy recommended for further evaluation. 4. Left upper extremity edema with a 12 x 6 cm intramuscular hematoma within the left biceps. 5. 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 6. Colonic diverticulosis. No evidence for acute diverticulitis. 7. Additional findings as described above. ACT 112: Negative or not required by law. Electronically signed by: Alo Zaragoza M.D. 02/03/2022 8:38 PM Abdomen/Pelvis CT 02/03/22 18:09 CT chest diagnostic wo con, CT abd pelvis wo con CT DOSE: 2406.06 mGy.cm HISTORY: Shortness of breath, h/o spiculated mass. Elevated bilirubin. TECHNIQUE: Multiaxial CT images of the chest, abdomen, and pelvis were performed without contrast. A dose lowering technique was utilized adhering to the principles of ALARA. COMPARISON: None. FINDINGS: Chest CT: Suboptimal evaluation the chest due to the motion artifact and streak artifact from the patient's overlapping arms. No pneumothorax. No pleural effusions. Mild emphysema. Multiple scattered nodular and groundglass patchy airspace opacities most pronounced within the lung bases. This is consistent with a pneumonia and could be due to acute on chronic aspiration. Partial opacification of the distal bilateral lower lobe bronchi. There is a 3.7 cm spiculated mass within the left upper lobe which results in focal occlusion of the proximal lingular bronchi. The distal lingular bronchi are partially opacified. There is a second spiculated mass within the left lower lobe on image 198 measuring 2.8 cm. Left upper extremity edema with a soft tissue hematoma medially. This appears to represent an intramuscular hematoma within the biceps muscle and measures 12 x 6.5 cm. Subcutaneous edema noted within the left lateral chest wall. Calcified mediastinal lymph nodes are noted. No mediastinal lymphadenopathy. The heart is normal in size. No pericardial effusion. Mild calcified plaque within the normal caliber thoracic aorta. Moderate to severe esophageal distention with focal transition point at the gastroesophageal junction. The esophagus is filled with debris. Abdomen/pelvis CT: Suboptimal evaluation due to motion artifact and streak artifact from the patient's overlapping arms. No pneumoperitoneum. No pneumatosis. No suspicious lytic are blastic osseous lesions. The unenhanced liver, spleen, adrenal glands, and pancreas are unremarkable. The gallbladder is mildly distended. No gallbladder wall thickening. No hydronephrosis. A 2.2 cm hypodense lesion within the upper pole the left kidney is incompletely characters on this noncontrast study but statistically represents a cyst. Mild aneurysmal dilatation of the abdominal aorta measuring 3.1 cm in diameter. Small curvilinear calcification within the mid abdominal aorta which could represent a chronic focal dissection. Moderate calcified plaque within the aorta and iliac arteries. The prostate gland is mildly enlarged. The bladder is unremarkable. No significant pelvic free fluid. Suboptimal evaluation for bowel pathology due to the lack of intravenous and oral contrast. However, there is no definite bowel wall thickening or obstruction. Colonic diverticulosis. No evidence for acute diverticulitis. No retroperitoneal lymphadenopathy. IMPRESSION: 1. There are 2 spiculated nodules/masses within the left upper and lower lobes as described above with the largest measuring 3.7 cm. This is highly suspicious for a primary bronchogenic malignancies. 2. Multiple scattered nodular and groundglass patchy airspace opacities most pronounced within the lung bases. This is consistent with a pneumonia and likely represents acute on chronic aspiration. 3. Moderate to severe distention of the esophagus which is filled with debris and demonstrates a focal transition point at the gastroesophageal junction. This could be due to an underlying esophageal lesion or achalasia. Follow-up endoscopy recommended for further evaluation. 4. Left upper extremity edema with a 12 x 6 cm intramuscular hematoma within the left biceps. 5. 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 6. Colonic diverticulosis. No evidence for acute diverticulitis. 7. Additional findings as described above. ACT 112: Negative or not required by law. Electronically signed by: Alo Zaragoza M.D. 02/03/2022 8:38 PM Discharge Plan Visit Data Chief Complaint: Shortness of Breath/Dyspnea Stated Complaint: SOB ED Provider: Carrillo Rainey Discharge Problem: Sepsis, Aspiration pneumonia, Acute respiratory failure, Elevated lactic acid level, Elevated troponin Patient Disposition: Admitted As Inpatient Discharge Instructions Interventions: ED Discharge Assessment Last Done: 02/03/22 21:57
[2022-02-03 21:14] LABS: INR 1.1 (0.9-1.1); Partial Thromboplastin Ratio 0.8; Partial Thromboplastin Time 21.1 Seconds (21.0-31.0); Prothrombin Time 11.2 Seconds (9.0-12.0)
[2022-02-03] MEDS ORDERED: ACETAMINOPHEN 325 MG TAB PO PRN (22:31)
[2022-02-03] MEDS ORDERED: POLYETHYLENE (MIRALAX) 17 GM PACK PO PRN (22:31)
[2022-02-03] MEDS ORDERED: ONDANSETRON INJ 2 MG/ML 2 ML VIAL IV PRN (22:31)
[2022-02-03] MEDS ORDERED: LEVALBUTEROL HCL 1.25 MG/3 ML NEB NEB PRN (22:31)
[2022-02-03] MEDS ORDERED: D5W AND 1/2NSS 1,000 ML IV SCH (22:31)
[2022-02-03] MEDS ORDERED: NITROGLYCERIN SL 0.4 MG/TAB TAB SL PRN (22:31)
[2022-02-03] MEDS ORDERED: dilTIAZem HCl 5 MG/ML 5 ML VIAL IV STA (23:23)
[2022-02-03] MEDS ORDERED: SODIUM CHLORIDE 0.9% 500 ML IV SCH (23:30)
[2022-02-03] MEDS: DOXYCYCLINE HYCLATE 100 MG in DEXTROSE 5% 100 ML IV SCH (23:57)
[2022-02-03] MEDS: TRIHEXYPHENIDYL HCL 2 MG TAB PO SCH (23:59)
--- NOTE | 2022-02-04 00:14 | History and Physical Report ---
DATE OF ADMISSION: 02/03/2022. CHIEF COMPLAINT: Shortness of breath. HISTORY OF PRESENT ILLNESS: An 86-year-old male with past medical history significant for hyperparathyroidism, hyperlipidemia, diaphragmatic hernia, diastolic CHF, CAD, GERD, protein calorie malnutrition, stage III chronic kidney disease,[place]- [place] syndrome, Parkinson disease, essential tremor, affective disorder, who presents with shortness of breath and respiratory distress. The patient was recently found to have a lung mass and plan for PET scan, but is falling repeatedly at home, currently at rehab, and family have him brought in because he was short of breath. The patient is not ambulating much. He is very weak. As per the family, since summer he is getting more weaker and is aspirating food for some time now. The patient is currently very drowsy. He opens eyes on calling, but not answering any questions. As per family, there was no fever, nausea, vomiting, or any complaints of pain, or any diarrhea. They said he was talking earlier. Family want him to be DNR/DNI. Currently, tachypneic. ER placed him on BiPAP and he is somewhat resting comfortably.Patiet left upper extremity is somewhat swollen and ecchymotic and family says he told them he fell on it. ALLERGIES: INFLUENZA VIRUS VACCINE. PAST MEDICAL HISTORY: As mentioned above. PAST SURGICAL HISTORY: Colonoscopy, EGD with biopsy, EGD with removal of foreign body, incisional hernia repair. MEDICATIONS: Aspirin 81 mg p.o. daily, atorvastatin 40 mg p.o. at bedtime, B complex 1 capsule p.o. daily, vitamin D 50 mcg p.o. daily, Colace 100 mg p.o. b.i.d., Lovenox 40 mg subcutaneous daily, famotidine 20 mg p.o. daily, Flonase 1 inhalation daily, guaifenesin 300 mg p.o. q.i.d., risperidone 4 mg p.o. b.i.d., trihexyphenidyl 2 mg p.o. q. 8 hours. FAMILY HISTORY: Significant for no family history on file. SOCIAL HISTORY: Quit smoking in 2012, smoked one-third pack a day. He used to drink occasionally. No drug use. REVIEW OF SYSTEMS: Could not obtain review of systems as the patient is currently not talking. PHYSICAL EXAMINATION: VITAL SIGNS: Temperature 36.6, pulse 109, respiratory rate 31, blood pressure 114/68, oxygen 96% on BiPAP. HEENT: Pupils are sluggish to react to light. Atraumatic. NECK: No JVD. No neck masses. CARDIOVASCULAR: S1 and S2 heard. Regular rate and rhythm. No murmur, no gallop. RESPIRATORY SYSTEM: Normal AP diameter. No accessory muscle use. No wheezing or crackles. ABDOMEN: Soft, bowel sounds present, nontender, no distention. CENTRAL NERVOUS SYSTEM: Drowsy, opens eyes on calling. EXTREMITIES: No edema, no erythema. LABORATORY DATA: WBC 10.4, hemoglobin 9.4, hematocrit 27.7, platelets 186. PT 11.2, INR 1.1, APTT 21.1. Venous blood gas, pH of 7.32, pCO2 of 46. Sodium 140, potassium 4.6, chloride 104, bicarbonate 24, BUN 39, creatinine 1.9, serum glucose 207. Lactate 4.4, calcium 10.6, phosphorus 4.1, total bilirubin 1.3, direct bilirubin 0.4, AST 25, ALT 34, alkaline phosphatase 74, total creatine kinase 112. Troponin I high sensitivity 26.2. BNP 153. Procalcitonin 0.3. Urinalysis, +1 leukocyte esterase. SARS-CoV-2 rapid COVID test came back positive. IMAGING DATA: Fore arm xray, no evidence of acute osseous injury. Humerus x- ray, no acute osseous injury. Chest x-ray: Cardiomegaly and mild pulmonary edema, multifocal airspace opacities, may represent atelectasis, pneumonia, and/or aspiration. Head CT, no acute intracranial abnormality, atrophy, or microvascular ischemic changes. Trace fluid within the sphenoid sinuses. Chest CT, two spiculated nodular masses within the left upper and lower lobes as described above, with the largest measuring 3.7 cm, this is highly suspicious for primary bronchogenic malignancies. Multiple scattered nodular ground-glass patchy airspace opacities, most pronounced in the lungs. This is consistent with pneumonia, likely representing [id number] aspiration. Moderate to severe distention of the esophagus, which is filled with debris and demonstrates a formal focal transition point of the gastroesophageal junction. This could be due to an underlying esophageal lesion or achalasia. Followup endoscopy recommended for further evaluation. Left upper extremity edema with a 12 x 6 cm intramuscular hematoma with the left biceps. Mild aneurysmal dilatation of the abdominal aorta measuring 3.1 cm. Colonic diverticulosis, no evidence of diverticulitis. ASSESSMENT AND PLAN: This is an 86-year-old male who presents with acute respiratory distress. 1. Acute respiratory distress: History of recent diagnosis of lung cancer, not worked up, and CAT scan is showing aspiration pneumonitis, possible achalasia versus esophageal lesion, [id number] aspiration. Currently, the patient placed on CPAP. DNR/DNI as per discussion with the family. Placed on IV Zosyn and IV doxycycline. Will follow the cultures. Follow the response. Nebs p.r.n. and consult pulmonary in the a.m. Speech evaluation. 2. He is COVID positive. It looks like he has been vaccinated, but not boosted as per the records and he does meet criteria for remdesivir because of kidney function and we will place him on steroids and monitor.Speech evaluation. 3. Elevated lactic acid, possible sepsis, possible underlying cancer. Getting fluids and antibiotics. Will monitor. Blood pressure is stable, could be also from being short of breath and tachypnea.Getting fluids. 4. Left upper extremity hematoma: Currently, holding anticoagulation. Will monitor. 5. Hyperlipidemia: On statin. 6.. History of coronary artery disease: On aspirin and statin. 7. History of Parkinson's: On trihexyphenidyl. 8. Acute kidney injury on chronic kidney disease stage III: Baseline creatinine is around 1.2, currently 1.9. Will avoid nephrotoxic agents. Getting fluids. Will follow the repeat labs in the a.m. 9. Oesophageal lesion. GI consult when stable. 10. Deep venous thrombosis prophylaxis: Sequential compression devices for now. DISPOSITION: Closely monitor in tele floor. Code status DNR/DNI. Job ID: [id number] [facility]
[2022-02-04] MEDS ORDERED: PIPERACILLIN/TAZOBACTAM 3.375 GM in DEXTROSE 5% 100 ML IV SCH (02:00)
[2022-02-04] MEDS: TRIHEXYPHENIDYL HCL 2 MG TAB PO SCH ×3 (06:14→21:47)
[2022-02-04 06:34] LABS: Hemoglobin 7.6 g/dl (14.0-18.0); Mean Corpuscular Hemoglobin 31.5 pg (25.0-34.0); Mean Corpuscular Hgb Conc 34.5 g/dL (32.0-36.0); Mean Corpuscular Volume 91.3 fL (80.0-100.0); Mean Platelet Volume 10.4 fL (9.4-12.4); Platelet Count 166 K/uL (130-400); RDW Coefficient of Variation 13.6 % (11.5-14.5); RDW Standard Deviation 45.3 fL (36.4-46.3); Red Blood Count 2.41 M/uL (4.63-6.08); White Blood Count 7.82 K/ul (4.8-10.8)
[2022-02-04 07:01] LABS: Acanthocytes 2+; Immature Granulocytes # (auto) 0.02 K/uL (0.00-0.02); Immature Granulocytes % (auto) 0.3 %; Lymphocytes # (auto) 0.31 K/uL (1.2-3.4); Monocytes # (auto) 0.45 K/uL (0.24-0.82); Monocytes % (auto) 5.8 %; Neutrophils # (auto) 7.04 K/uL (1.4-6.5); Neutrophils % (auto) 89.9 %; Polychromasia 1+
[2022-02-04 07:22] LABS: BUN Creatinine Ratio 24.4 (10-20); Calcium 9.5 mg/dl (8.5-10.1); Creatinine Clr Calc Pharmacy 23.9 ml/min; Est GFR (African American) 46.6 ml/min; Est GFR (Non-African American) 40.2 ml/min; Magnesium 2.1 mg/dl (1.7-2.4)
[2022-02-04] MEDS ORDERED: GLUCAGON FOR INJ 1 MG VIAL SQ PRN (08:00)
[2022-02-04] MEDS ORDERED: DEXTROSE 50% 50 ML SYRINGE IV PRN (08:00)
[2022-02-04] MEDS ORDERED: GLUCOSE 10 TAB/TUBE PO PRN (08:00)
[2022-02-04] MEDS ORDERED: GLUCOSE 40% GEL 15 GM TUBE PO PRN (08:00)
[2022-02-04] MEDS ORDERED: CARBOHYDRATES FOR HYPOGLYCEMIA PO PRN (08:00)
[2022-02-04] MEDS ORDERED: PHARMACY GLYCEMIC MGMT CONSULT PRN (08:00)
[2022-02-04] MEDS ORDERED: LANTUS PER UNIT CHARGE SQ ONE (09:00)
[2022-02-04] MEDS ORDERED: ASPIRIN 81 MG CHEW PO SCH (09:00)
[2022-02-04] MEDS ORDERED: CHOLECALCIFEROL 1,000 UNITS 25 MCG TAB PO SCH (09:00)
[2022-02-04] MEDS: SODIUM CHLORIDE 0.9% 1000ML 1,000 ML IV SCH ×2 (09:18→20:02)
[2022-02-04] MEDS: risperiDONE 2 MG TABLET PO SCH ×2 (09:19→20:01)
[2022-02-04] MEDS: guaiFENesin SUGAR FREE 100 MG/5 ML UDC PO SCH ×4 (09:19→20:01)
[2022-02-04] MEDS: dexAMETHasone 6 MG in SYRINGE 0 ML IV SCH (09:19)
[2022-02-04] MEDS: FAMOTIDINE 20 MG TAB PO SCH (09:19)
[2022-02-04] MEDS: FLUTICASONE FUROATE 200MCG 14 PUFFS/INHALER INH SCH (09:19)
[2022-02-04] MEDS: DOCUSATE SODIUM 100 MG CAP PO SCH ×2 (09:19→20:01)
[2022-02-04] MEDS: NEPHROCAPS PO SCH (09:19)
[2022-02-04] MEDS: INSULIN ASPART PER UNIT SC SCH ×5 (09:32→23:44)
[2022-02-04 09:33] LABS: Estimated Average Glucose 117 mg/dl; Hemoglobin A1C 5.7 % (4.5-5.6)
--- NOTE | 2022-02-04 10:09 | Pulmonary Consultation ---
Date of Consultation February 04, 2022 Assessment & Plan (1) Aspiration pneumonia: (2) Acute respiratory failure: (3) Lung mass: Plan Attending: Dr. Hameed Impression: This is 86-year-old male with past medical history of smoking who quit smoking 2012. 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 Pulmonary consulted for evaluation of acute shortness of breath with question of aspiration pneumonia as well as evaluation of possible tumor/lung mass Recommendations: 1. Lung mass: * Patient has probable spiculated lung mass in left upper lobe and left lower lobe consistent with probable malignancy. * Patient has CT scan performed with [facility] in [place] and was planned for PET/CT which was not completed * Patient was then transferred from [facility] to [facility] where the patient acutely decompensated * Patient most likely aspirating in conjunction with newly diagnosed COVID-19 infection * Discussion with daughter Dee with full review of imaging and record * At this point, she is spoken with her siblings and they would not endorse further investigation of tissue biopsy or treatment if this were malignancy * Continue to manage symptoms and focus on quality of life/comfort 2. Probable aspiration: * Patient most likely has silent aspiration which manifested itself while in [facility] * In discussion with daughter, patient has been known to choke when he is eating * At this point patient is being treated empirically with antibiotics * Continue to provide supportive care and maintain SaO2 greater than 88% 3. COVID-19 infection: * Daughter aware there is high morbidity in this age group with COVID in combination with other pulmonary disease such as aspiration * Patient is not a candidate for remdesivir or other EAU or FDA approved modalities * Continue to maintain fluid negative balance * Would discontinue CPAP/BiPAP and use only high flow oxygen * Family agrees to palliative medicine consult. Discussed with hospitalist team. They will place order and coordinate care 4. Acute respiratory failure secondary to hypoxia: * ABG with no pronounced hypercapnia * Discontinue CPAP/BiPAP and use high flow oxygen or Oxymask * Focus on patient's comfort * Most likely multi factorial secondary to lung mass, aspiration, COVID-19 infection I discussed this with Dr. Mitchell of the hospitalist team. Little more for the pulmonary team to offer. We will sign off at this time. Please feel free to reconsult or contact us with specific questions. Thank you for including us in the care of this patient. Please refer to Dr. Nick barcenas's addendum for further recommendations or corrections. Supervising Physician Co-Signing Physician Notes Pt seen and examined. EMR and imaging reviewed. Agree with AP as noted by pulmonary LISA. Patient is clinically unstable to consider additional evaluation at this time. findings are concerning for potential malignancy. Family has elected not to pursue additional evaluation at this time. recommend completing course of abx. If the patients status should change and he wishes additional evaluation in the future, agree with outpatient PET scan and pulmonary follow up. Pulmonary will sign off. call if questions. History of Present Illness Reason for Consultation: Routine pulmonary consult placed for acute respiratory distress with question of aspiration pneumonia and question of lung mass Attending Physician: Luis Miguel Mitchell MD History of Present Illness Attending: Dr. Hameed This is an 86-year-old male that was presented early this morning with acute respiratory distress. Imaging showed concern for aspiration pneumonia and possible lung mass. 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 Patient malnutrition with a BMI of 17.1 kg/m. Patient was given methylprednisolone 125 mg IV, Zosyn, doxycycline in the emergency department. Patient is afebrile with a T-max of 37.4 C. No leukocytosis with a WBC of 7.82.[facility] Hemoglobin is low at 7.6 g/Beto. VBG reveals a pH of 7.32, PCO2 of 46, PaO2 of 24, HCO3 of 24. Electrolytes are balanced. BUN 38 with a creatinine of 1.56 (no baseline to compare). CT scan of the chest shows 2 spiculated nodules/masses within the left upper and lower lobes with the largest measuring 3.7 cm. There are multiple scattered nodular groundglass patchy appearance opacities.. There is also moderate to severe distention of the esophagus which is filled with debris. Patient has left upper extremity edema 12 x 6 cm intramuscular hematoma within the left bicep. Patient has history of falls and had a CT scan of the head which shows no acute intracranial abnormality. However, there is atrophy and microvascular ischemic changes as well as trace fluid within the sphenoid sinuses. Patient did have elevated troponin 95.4 this morning. EKG revealed sinus tach with premature atrial complexes. There appears to be a left anterior fascicular block. QTC is 435 ms. No prior EKGs. Patient is partially responsive and seems to have some correct answers. Overall however he is noncommunicative and not able to give me history or convincing review of systems. Patient was found to have left upper lobe and left lower lobe masses on CT scan at [facility] in [place]. He was scheduled for PET/CT and when he presented for the procedure, their machine was broken and he was unable to have the procedure completed. Patient was transferred to [facility] from [facility] and consequently transferred here. I had extensive discussion with the daughter Dee who is 1 of 5 children and the spokesperson for the family. After lengthy discussion, she understands the extensiveness of the patient's comorbidities as well as his frailty and does not wish to pursue any diagnostics for determination of malignancy or other disease. Like to continue with current care with placement of a palliative care consult to determine care plan for end-of-life management. Dr. Mitchell from the [facility] team is managing this patient. I discussed this at length with him and he will place a palliative care consult and continue discussion with the family. Allergies Allergy/AdvReac Type Severity Reaction Status Date / Time No Known Allergies Allergy Unverified 02/03/22 16:08 Home Medications Medication Instructions Recorded Confirmed Type aspirin 81 mg chewable tablet 81 mg PO DAILY 02/03/22 02/03/22 History (Aspirin Childrens) atorvastatin 40 mg tablet 40 mg PO HS 02/03/22 02/03/22 History cholecalciferol (vitamin D3) 50 50 mcg PO DAILY 02/03/22 02/03/22 History mcg (2,000 unit) capsule (Vitamin D3) docusate sodium 100 mg capsule 100 mg PO BID 02/03/22 02/03/22 History enoxaparin 40 mg/0.4 mL 40 mg subcut DAILY 02/03/22 02/03/22 History subcutaneous syringe famotidine 20 mg tablet 20 mg PO DAILY 02/03/22 02/03/22 History fluticasone furoate 200 1 inh inhalation DAILY 02/03/22 02/03/22 History mcg/actuation blister powder for inhalation guaifenesin 100 mg/5 mL oral liquid 300 mg PO QID 02/03/22 02/03/22 History risperidone 4 mg tablet 4 mg PO Q12 02/03/22 02/03/22 History trihexyphenidyl 2 mg tablet 2 mg PO Q8 02/03/22 02/03/22 History vitamin B complex and vitamin C 1 cap PO DAILY 02/03/22 02/03/22 History no.20-folic acid 1 mg capsule (Renal Caps) Patient History Medical History (Updated 02/04/22 @ 17:26 by MELISSA Scott) CKD (chronic kidney disease) Hyperlipidemia Lung mass Recurrent falls Schizophrenia Family History Other Family history non-contributory Social History Smoking Status: Former smoker Do You Dip or Chew Tobacco: No; Hx Alcohol Use: No Hx Substance Use: No Communication Ability: Impaired Beliefs That Will Affect Care: None [facility]uation[facility] Other Information That Helps Us Care for You: No Assistive Devices: Walker Review of Systems Review of Systems: Unobtainable due to cognitive status Physical Exam Physical Exam: GENERAL : No acute distress but somewhat lethargic and nonresponsive in most cases. Very emaciated. EYES: No icterus, gaze conjugate. Pupils equal round and reactive to light NOSE: No evidence of epistaxis MOUTH: No lesions or candidiasis NECK: Supple LUNGS: Patient is tachypneic. Rhonchi appreciated. HEART: Regular, rate controlled ABDOMEN: Soft, NT, ND, BS Present EXTREMITIES: No LE edema, pedal pulses intact NEURO: A&OX3 Results & Data Results & Data ([facility]) Vital Signs (Past 12 Hours) Vital Signs Temp Pulse Pulse Resp BP Pulse Ox O2 Del Method 02/04/22 08:00 92 H 02/04/22 08:00 Oxymask 02/04/22 07:32 36.9 C 90 22 164/67 H 94 CPAP 02/04/22 05:00 36.8 C 99 H 31 H 168/74 H 96 CPAP 02/04/22 03:32 103 H 24 98 02/04/22 00:31 CPAP 02/04/22 00:25 37.4 C 108 H 28 H 126/70 93 CPAP 02/03/22 22:14 107 H 30 H 97 02/03/22 22:52 CPAP 02/03/22 22:36 37.4 C 119 H 31 H 132/70 94 CPAP O2 Flow Rate 02/04/22 08:00 02/04/22 08:00 5 02/04/22 07:32 02/04/22 05:00 02/04/22 03:32 3 02/04/22 00:31 02/04/22 00:25 02/03/22 22:14 3 02/03/22 22:52 02/03/22 22:36 Critical Care Results & Data Vital Signs (Past 12 Hours) Vital Signs Temp Pulse Pulse Resp BP Pulse Ox O2 Del Method 02/04/22 08:00 92 H 02/04/22 08:00 Oxymask 02/04/22 07:32 36.9 C 90 22 164/67 H 94 CPAP 02/04/22 05:00 36.8 C 99 H 31 H 168/74 H 96 CPAP 02/04/22 03:32 103 H 24 98 02/04/22 00:31 CPAP 02/04/22 00:25 37.4 C 108 H 28 H 126/70 93 CPAP 02/03/22 22:52 CPAP 02/03/22 22:36 37.4 C 119 H 31 H 132/70 94 CPAP O2 Flow Rate 02/04/22 08:00 02/04/22 08:00 5 02/04/22 07:32 02/04/22 05:00 02/04/22 03:32 3 02/04/22 00:31 02/04/22 00:25 02/03/22 22:52 02/03/22 22:36 Lab & Micro Results (Past 24 Hours) Hgb 7.3 g/dl (14.0-18.0) L 02/04/22 Hct 21.4 % (40.1-51.0) L 02/04/22 No Data to Display No Data to Display Diagnostic Findings (Past 24 Hours) Forearm X-Ray 02/03/22 15:51 XR forearm LT 2V CLINICAL HISTORY: pain brusing TECHNIQUE: 2 views of the left forearm were obtained. Comparison: None available at the time of this dictation. FINDINGS: There is no evidence of acute fracture or dislocation. Joint spaces are well- preserved. No soft tissue abnormality is seen. IMPRESSION: No evidence of acute osseous injury. ACT 112: Negative or not required by law. Electronically signed by: Rojelio Mixon M.D. 02/03/2022 4:41 PM Humerus X-Ray 02/03/22 15:51 XR humerus LT 2V CLINICAL HISTORY: pain brusing TECHNIQUE: 2 radiographic views of the left humerus were obtained. Comparison: None available at the time of this dictation. FINDINGS: There is no evidence for fracture, subluxation or dislocation. The visualized portion of the shoulder and elbow joints are unremarkable. There is normal bone mineralization. The overlying soft tissues are unremarkable. IMPRESSION: No acute osseous injury ACT 112: Negative or not required by law. Electronically signed by: Rojelio Mixon M.D. 02/03/2022 4:40 PM Chest X-Ray 02/03/22 15:52 XR chest 1V portable CLINICAL HISTORY: Sepsis TECHNIQUE: Single frontal radiograph of the chest was obtained. Comparison: None available at the time of this dictation. FINDINGS: No lines and tubes are seen. Cardiomegaly is noted. The aortic arch is calcified. Prominence and cephalization of the vasculature is seen. There are scattered airspace opacities throughout the lungs. No evidence of pleural effusion or pneumothorax. IMPRESSION: 1. Cardiomegaly and mild pulmonary edema. 2. Multifocal airspace opacities may represent atelectasis, pneumonia, and/or aspiration. ACT 112: Negative or not required by law. Electronically signed by: Rojelio Mixon M.D. 02/03/2022 5:[address] 02/03/22 15:[address] DOSE: HISTORY: Altered mental status. TECHNIQUE: Multiaxial CT images of the head were performed without the use of intravenous contrast. Automated exposure control was utilized for this study. A dose lowering technique was utilized adhering to the principles of ALARA. Comparison: None. Findings: Trace fluid levels within the sphenoid sinuses. The mastoid air cells are clear. The calvarium and skull base are intact. There is no mass, hematoma, midline shift, acute infarct. White matter hypodensity is nonspecific but suggestive of microvascular ischemic change. The ventricles and sulci demonstrate mild age-related involutional changes. Impression: No acute intracranial abnormality. Atrophy and microvascular ischemic changes. Trace fluid within the sphenoid sinuses. ACT 112: Negative or not required by law. Electronically signed by: Alo Zaragoza M.D. 02/03/2022 7:[address] 02/03/22 18:08 CT chest diagnostic wo con, CT abd pelvis wo con CT DOSE: 2406.06 mGy.cm HISTORY: Shortness of breath, h/o spiculated mass. Elevated bilirubin. TECHNIQUE: Multiaxial CT images of the chest, abdomen, and pelvis were performed without contrast. A dose lowering technique was utilized adhering to the principles of ALARA. COMPARISON: None. FINDINGS: Chest CT: Suboptimal evaluation the chest due to the motion artifact and streak artifact from the patient's overlapping arms. No pneumothorax. No pleural effusions. Mild emphysema. Multiple scattered nodular and groundglass patchy air space opacities most pronounced within the lung bases. This is consistent with a pneumonia and could be due to acute on chronic aspiration. Partial opacification of the distal bilateral lower lobe bronchi. There is a 3.7 cm spiculated mass within the left upper lobe which results in focal occlusion of the proximal lingular bronchi. The distal lingular bronchi are partially opacified. There is a second spiculated mass within the left lower lobe on image 198 measuring 2.8 cm. Left upper extremity edema with a soft tissue hematoma medially. This appears to represent an intramuscular hematoma within the biceps muscle and measures 12 x 6.5 cm. Subcutaneous edema noted within the left lateral chest wall. Calcified mediastinal lymph nodes are noted. No mediastinal lymphadenopathy. The heart is normal in size. No pericardial effusion. Mild calcified plaque within the normal caliber thoracic aorta. Moderate to severe esophageal distention with focal transition point at the gastroesophageal junc tion. The esophagus is filled with debris. Abdomen/pelvis CT: Suboptimal evaluation due to motion artifact and streak artifact from the patient's overlapping arms. No pneumoperitoneum. No pneumatosi s. No suspicious lytic are blastic osseous lesions. The unenhanced liver, spleen, adrenal glands, and pancreas are unremarkable. The gallbladder is mildly distended. No gallbladder wall thickening. No hydronephrosis. A 2.2 cm hypodense lesion within the upper pole the left kidney is incompletely characters on this noncontrast study but statistically represents a cyst. Mild aneurysmal dilatation of the abdominal aorta measuring 3.1 cm in diameter. Small curvilinear calcification within the mid abdominal aorta which could represent a chronic focal dissection. Moderate calcified plaque within the aorta and iliac arteries. The prostate gland is mildly enlarged. The bladder is unremarkable. No significant pelvic free fluid. Suboptimal evaluation for bowel pathology due to the lack of intravenous and oral contrast. However, there is no definite bowel wall thickening or obstruction. Colonic diverticulosis. No evidence for acute diverticulitis. No retroperitoneal lymphadenopathy. IMPRESSION: 1. There are 2 spiculated nodules/masses within the left upper and lower lobes as described above with the largest measuring 3.7 cm. This is highly suspicious for a primary bronchogenic malignancies. 2. Multiple scattered nodular and groundglass patchy airspace opacities most pronounced within the lung bases. This is consistent with a pneumonia and likely represents acute on chronic aspiration. 3. Moderate to severe distention of the esophagus which is filled with debris and demonstrates a focal transition point at the gastroesophageal junction. This could be due to an underlying esophageal lesion or achalasia. Follow-up endoscopy recommended for further evaluation. 4. Left upper extremity edema with a 12 x 6 cm intramuscular hematoma within the left biceps. 5. 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 6. Colonic diverticulosis. No evidence for acute diverticulitis. 7. Additional findings as described above. ACT 112: Negative or not required by law. Electronically signed by: Alo Zaragoza M.D. 02/03/2022 8:38 PM Abdomen/Pelvis CT 02/03/22 18:09 CT chest diagnostic wo con, CT abd pelvis wo con CT DOSE: 2406.06 mGy.cm HISTORY: Shortness of breath, h/o spiculated mass. Elevated bilirubin. TECHNIQUE: Multiaxial CT images of the chest, abdomen, and pelvis were performed without contrast. A dose lowering technique was utilized adhering to the principles of ALARA. COMPARISON: None. FINDINGS: Chest CT: Suboptimal evaluation the chest due to the motion artifact and streak artifact from the patient's overlapping arms. No pneumothorax. No pleural effusions. Mild emphysema. Multiple scattered nodular and groundglass patchy airspace opacities most pronounced within the lung bases. This is consistent with a pneumonia and could be due to acute on chronic aspiration. Partial opacification of the distal bilateral lower lobe bronchi. There is a 3.7 cm spiculated mass within the left upper lobe which results in focal occlusion of the proximal lingular bronchi. The distal lingular bronchi are partially opacified. There is a second spiculated mass within the left lower lobe on image 198 measuring 2.8 cm. Left upper extremity edema with a soft tissue hematoma medially. This appears to represent an intramuscular hematoma within the biceps muscle and measures 12 x 6.5 cm. Subcutaneous edema noted within the left lateral chest wall. Calcified mediastinal lymph nodes are noted. No mediastinal lymphadenopathy. The heart is normal in size. No pericardial effusion. Mild calcified plaque within the normal caliber thoracic aorta. Moderate to severe esophageal distention with focal transition point at the gastroesophageal junction. The esophagus is filled with debris. Abdomen/pelvis CT: Suboptimal evaluation due to motion artifact and streak artifact from the patient's overlapping arms. No pneumoperitoneum. No pneumatosis. No suspicious lytic are blastic osseous lesions. The unenhanced liver, spleen, adrenal glands, and pancreas are unremarkable. The gallbladder is mildly distended. No gallbladder wall thickening. No hydronephrosis. A 2.2 cm hypodense lesion within the upper pole the left kidney is incompletely characters on this noncontrast study but statistically represents a cyst. Mild aneurysmal dilatation of the abdominal aorta measuring 3.1 cm in diameter. Small curvilinear calcification within the mid abdominal aorta which could represent a chronic focal dissection. Moderate calcified plaque within the aorta and iliac arteries. The prostate gland is mildly enlarged. The bladder is unremarkable. No significant pelvic free fluid. Suboptimal evaluation for bowel pathology due to the lack of intravenous and oral contrast. However, there is no definite bowel wall thickening or obstruction. Colonic diverticulosis. No evidence for acute diverticulitis. No retroperitoneal lymphadenopathy. IMPRESSION: 1. There are 2 spiculated nodules/masses within the left upper and lower lobes as described above with the largest measuring 3.7 cm. This is highly suspicious for a primary bronchogenic malignancies. 2. Multiple scattered nodular and groundglass patchy airspace opacities most pronounced within the lung bases. This is consistent with a pneumonia and likely represents acute on chronic aspiration. 3. Moderate to severe distention of the esophagus which is filled with debris and demonstrates a focal transition point at the gastroesophageal junction. This could be due to an underlying esophageal lesion or achalasia. Follow-up endoscopy recommended for further evaluation. 4. Left upper extremity edema with a 12 x 6 cm intramuscular hematoma within the left biceps. 5. 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 6. Colonic diverticulosis. No evidence for acute diverticulitis. 7. Additional findings as described above. ACT 112: Negative or not required by law. Electronically signed by: Alo Zaragoza M.D. 02/03/2022 8:38 PM I & O Totals 24 Hours 02/03/22 02/04/22 02/05/22 06:59 06:59 06:59 Intake Total 2684.16 / 2684.16 598 / 598 Output Total 625 / 625 Balance 2059.16 / 2059.16 598 / 598 Cumulative 02/03/22 14:47 thru 02/04/22 09:52 Intake Total 3282.16 Output Total 625 Balance 2657.16 RT Ventilator Mngmt (Last Documented) Ventilator Ordered Settings Respiratory Rate 22 02/04/22 07:32 Fraction of Inspired Oxygen 40 02/03/22 20:30 Ventilator - PT Measurements Respiratory Rate 22 PG Care Time/CCT Total # of Minutes Spent Total Time Spent with Patient: Total time spent is greater than 50% in coordination of care (as documented) at patient's floor/unit and/or counseling patient: 70 minutes including discussion with patient's daughter Coding Level of Care Code 33974 Inpt Consult Level 5 Diagnoses Aspiration pneumonia J69.0 Acute respiratory failure J96.00 Lung mass R91.8 Time Spent (min) 70
[2022-02-04] MEDS: DOXYCYCLINE HYCLATE 100 MG in DEXTROSE 5% 100 ML IV SCH ×2 (11:00→23:42)
[2022-02-04] MEDS: PIPERACILLIN/TAZOBACTAM 3.375 GM in DEXTROSE 5% 100 ML IV SCH ×2 (12:03→20:04)
--- NOTE | 2022-02-04 13:21 | Pharmacy Report ---
Pharmacy Glycemic Short Note 2 - Date of Service February 04, 2022 - Glycemic Short BSG Results (Last 24 hours): 02/03/22 02/04/22 02/04/22 16:51 06:02 08:22 Glucose 207 H 243 H POC Glucose 216 H 02/04/22 12:35 Glucose POC Glucose 137 H OUTPATIENT ANTIDIABETIC REGIMEN: * N/A * HbA1C= 5.7% ASSESSMENT: * Mr Acuña is an 86 y/o M who presents with COVID and weakness. * Patient received Solu-Medrol 125 mg @ 1706 on 02/03. * He was started on dexamethasone 6 mg IV daily on 02/04 * BSG today was 216 mg/dL fasting and then 137 mg/dL at lunch. Patient NPO. * Lantus 12 units (bhkg-[id number] stress of 3) to cover steroid hyperglycemia. Subsequent doses to be determined based upon how patient reacts. * Novolog weight-based stress of 3 due to steroids. Monitor BSGs every 4 hours as patient does not have diabetes and hyperglycemia due to steroids. PLAN FOR INPATIENT GLYCEMIC CONTROL: * Basal insulin * Lantus 12 units SQ x 1 with subsequent doses TBD * Bolus insulin * NovoLog per scale ACHS or Q4hrs while NPO * Goal Range: Low 110 mg/dL - High 140 mg/dL * Correction Factor: 30 mg/dL/unit * Nutritional / Prandial insulin per carb ratio of 1 unit per 10 grams CHO consumed
--- NOTE | 2022-02-04 13:59 | Electrocardiogram Report ---
Test Reason : Blood Pressure : / mmHG Vent. Rate : 117 BPM Atrial Rate : 117 BPM P-R Int : 178 ms QRS Dur : 076 ms QT Int : 312 ms P-R-T Axes : 045 -46 038 degrees QTc Int : 435 ms Sinus tachycardia with Premature atrial complexes Left anterior fascicular block Abnormal ECG When compared with ECG of 03-FEB-2022 15:11, Premature atrial complexes are now Present Confirmed by Yan Wolf ([id number]) on 02/04/2022 1:58:55 PM Referred By: Zoila Calzada Confirmed By:Heraclio Wolf
[2022-02-04 14:21] LABS: Hematocrit (blood only) 21.4 % (40.1-51.0); Hemoglobin 7.3 g/dl (14.0-18.0)
--- NOTE | 2022-02-04 16:11 | Hospitalist Progress Note ---
Date of Service February 04, 2022 Assessment & Plan (1) Acute respiratory failure: Plan: Admitting service notes with addendum: ASSESSMENT AND PLAN: This is an 86-year-old male who presents with acute respiratory distress. 1. Acute respiratory distress: History of recent diagnosis of lung cancer, not worked up, and CAT scan is showing aspiration pneumonitis, possible achalasia versus esophageal lesion, [id number] aspiration. Currently, the patient placed on CPAP. DNR/DNI as per discussion with the family. Placed on IV Zosyn and IV doxycycline. Will follow the cultures. Follow the response. Nebs p.r.n. and consult pulmonary in the a.m. Speech evaluation. Likely secondary to underlying aspiration pneumonia, lung cancer, COVID-19 infection -Weaned off BiPAP, currently on oxygen mask - continue doxycycline plus Zosyn - Continue Decadron Pulmonary service consulted, discussed with RIKY Castillo, patient's family leaning towards comfort measures, would like to discuss with palliative care service As needed morphine ordered for shortness of breath, pain, discussed with patient's daughter at the bedside, informed patient may be drowsy after receiving morphine, she is understanding, would like family members to visit patient first prior to giving morphine 2. He is COVID positive. It looks like he has been vaccinated, but not boosted as per the records On Decadron 3. Elevated lactic acid, possible sepsis, possible underlying cancer. Getting fluids and antibiotics. Will monitor. Blood pressure is stable, could be also from being short of breath and tachypnea.Getting fluids. Given IV fluids Lactic acid normalized 4. Left upper extremity hematoma: Currently, holding anticoagulation. Monitor hemoglobin 5. Hyperlipidemia: On statin. 6.. History of coronary artery disease: Hold aspirin given left upper extremity hematoma 7. History of Parkinson's: On trihexyphenidyl. 8. Acute kidney injury on chronic kidney disease stage III: Baseline creatinine is around 1.2, currently 1.9. Will avoid nephrotoxic agents. Getting fluids. Will follow the repeat labs in the a.m. -Creatinine improved to 1.5 9. Oesophageal lesion. GI consulted 10. Deep venous thrombosis prophylaxis: Sequential compression devices for now. DISPOSITION: Closely monitor in tele floor. Code status DNR/DNI. plan of care discussed with patient's daughter at the bedside in detail and at length all questions answered They are understanding, agreeable, comfortable with the plan of care Admission and Anticipated Discharge Date Admission Date: February 03, 2022 Subjective Follow-up for acute respiratory failure, aspiration pneumonia, lung lesions, esophageal obstruction, etc. Seen with patient's daughter at the bedside Also discussed with RIKY Castillo, patient's family leaning towards comfort measures, requesting palliative care consultation Patient resting in bed, awake but confused Tries to speak but difficult to understand speech Does not follow commands Not in respiratory distress No signs of pain Other issues Review of Systems Review of Systems: all noted and negative except for above Physical Exam Physical Exam: General- oriented x 0, not in distress, breathing with no effort or accessory muscle use Eyes- anicteric Neck- no JVD Lungs-positive crackles bilaterally, no wheezing Heart- normal rate, regular rhythm; no murmurs Abdomen- normal bowel sounds, nondistended, soft, nontender Extremities- no pretibial edema, no calf tenderness Neuro- alert, oriented x 0; no gross focal neurologic deficits Skin- warm & dry Results & Data Results & Data ([facility]) Vital Signs (Past 12 Hours) Vital Signs Temp Pulse Pulse Resp BP Pulse Ox O2 Del Method 02/04/22 08:00 92 H 02/04/22 08:00 Oxymask 02/04/22 07:32 36.9 C 90 22 164/67 H 94 CPAP 02/04/22 05:00 36.8 C 99 H 31 H 168/74 H 96 CPAP O2 Flow Rate 02/04/22 08:00 02/04/22 08:00 5 02/04/22 07:32 02/04/22 05:00 all noted and reviewed including below
[2022-02-04] MEDS: MoRPHine SULFATE 2 MG/ML CARP IV PRN (17:15)
--- NOTE | 2022-02-04 17:29 | Gastrointestinal Consultation ---
Date of Consultation February 04, 2022 Assessment & Plan (1) Esophageal dilatation: Esophageal lesion, achalasia, poor esophageal motility overall considered. (2) Dysphagia: Plan 1. Due to COVID and patient's overall poor respiratory status, would avoid endoscopy if at all possible. 2. We will keep NPO. 3. Will request records from [facility] and [facility]. After these are received and patient's respiratory status improves we will consider EGD. At this time no plans for endoscopy. Supervising Physician Co-Signing Physician Notes Attending attestation I have seen, examined this patient, and agree with the findings and above by our mid-level provider MELISSA Graza, with the following additions: Patient severely emaciated and cahcectic with respiratory distress with BiPAP and a non-rebreather. Recent endoscopies will be obtained, however I will continue supportive care, discuss goals of care, Currently not an endoscopic candidate given respiratory status. recall pending clinical course. History of Present Illness Reason for Consultation: esophageal lesion vs. achalasia, obstruction Requesting Physician: Dr. Mitchell Attending Physician: Luis Miguel Mitchell MD History of Present Illness Mr. Pranay Acuña is an 86-year-old male patient of Dr. Seth with a history ofMrTrang lazo is an 86-year-old male patient of Dr. Seth with a history of hyperparathyroidism, hyperlipidemia, hyperparathyroid hiatal hernia, CHF, CAD, GERD, malnutrition, CKD 3,ism, hyperlipidemia, hiatal hernia, CHF, CAD, GERD, malnutrition, CKD Parkinson's,3, Parkinson's, who was brought to the ED early this morning for shortness of breath. He was found to be CO VID positive. was brought to the ED early this morning for shortness of breath. He was found to GI is consulted for esophageal lesion versus achalasia at the dilated esophagus was found on CT scan. As a dilated esophagus was found on CT scan. The patient is not able to provide able to provide a history.a history. At the time of my interview At the time of my interview this morning,this morning his daughter, his daughter was in the room with him and she provided the history. She t was in the room with him and she provided the history. She tells me thatells me that he had been living independently until he fell he had been living independently until he fell about 3 weeks ago. He was hospitalized and a CT scan found lung masses. Biopsies are set up for next week. However, in the interim, he went to rehab at [facility] and when he developed SOB, he was transferred to [facility] ED. The pt's daughter tells me that the pt has had some difficulty swallowing for a year or so. She believes he has undergone EGD with dilation about 2 times this year. She believes he is undergone EGD with dilation at [facility] and at [facility] both within the past year. She is unsure if the procedures improved his symptoms. Allergies Allergy/AdvReac Type Severity Reaction Status Date / Time No Known Allergies Allergy Unverified 02/03/22 16:08 Home Medications Medication Instructions Recorded Confirmed Type aspirin 81 mg chewable tablet 81 mg PO DAILY 02/03/22 02/03/22 History (Aspirin Childrens) atorvastatin 40 mg tablet 40 mg PO HS 02/03/22 02/03/22 History cholecalciferol (vitamin D3) 50 50 mcg PO DAILY 02/03/22 02/03/22 History mcg (2,000 unit) capsule (Vitamin D3) docusate sodium 100 mg capsule 100 mg PO BID 02/03/22 02/03/22 History enoxaparin 40 mg/0.4 mL 40 mg subcut DAILY 02/03/22 02/03/22 History subcutaneous syringe famotidine 20 mg tablet 20 mg PO DAILY 02/03/22 02/03/22 History fluticasone furoate 200 1 inh inhalation DAILY 02/03/22 02/03/22 History mcg/actuation blister powder for inhalation guaifenesin 100 mg/5 mL oral liquid 300 mg PO QID 02/03/22 02/03/22 History risperidone 4 mg tablet 4 mg PO Q12 02/03/22 02/03/22 History trihexyphenidyl 2 mg tablet 2 mg PO Q8 02/03/22 02/03/22 History vitamin B complex and vitamin C 1 cap PO DAILY 02/03/22 02/03/22 History no.20-folic acid 1 mg capsule (Renal Caps) Patient History Medical History (Updated 02/04/22 @ 17:26 by Lorella G. Liu, WOOL CLEANER) CKD (chronic kidney disease) Hyperlipidemia Lung mass Recurrent falls Schizophrenia Family History Other Family history non-contributory Social History Smoking Status: Former smoker Do You Dip or Chew Tobacco: No; Hx Alcohol Use: No Hx Substance Use: No Communication Ability: Impaired Beliefs That Will Affect Care: None Current Living Situation: Longterm and Rehab Other Information That Helps Us Care for You: No Assistive Devices: Walker Review of Systems Review of Systems: Unable to obtain review of systems from the patient. Physical Exam Constitutional: + ill appearing, + cachectic and + frail appearing Eyes: PERRL, conjunctivae normal, anicteric sclerae ENMT: external ear and nose normal, oropharynx normal Neck: trachea midline, no thyromegaly Respiratory: Rhonchi and wheezes present throughout, few crackles at the bases, lung sounds are very diminished. O2 via non rebreather Cardiovascular: Rate/Rhythm: regular rhythm and + tachycardic (mildly) Heart Sounds: no murmur Gastrointestinal (Abdomen): normal bowel sounds, soft, nontender, no hepatosplenomegaly Musculoskeletal: Left arm very edematous and ecchymotic. Warm to touch. Skin: Pale, dry, no lesions, No jaundice Neurologic: minimally responsive but does react to sound/touch. Does not appear to be uncomfortable. Lymphatic: left arm edema. No visible/palpable lymph nodes Results & Data ([facility]) Vital Signs (Past 12 Hours) Vital Signs Temp Pulse Pulse Resp BP Pulse Ox O2 Del Method 02/04/22 16:14 144/84 H 94 02/04/22 08:00 92 H 02/04/22 08:00 Oxymask 02/04/22 07:32 36.9 C 90 22 164/67 H 94 CPAP O2 Flow Rate 02/04/22 16:14 02/04/22 08:00 02/04/22 08:00 5 02/04/22 07:32 Laboratory Results COVID-positive, urine positive for leukocyte and nitrites WBC 7.8, Hb 7.3, HCT 21, platelets 166, NA 140, K4.0, CL 109, CO2 23, BUN 38, CR 1.56, glucose [address] chest/AP 02/03. There are 2 spiculated nodules/masses within the left upper and lower lobes as described above with the largest measuring 3.7 cm. This is highly suspicious for a primary bronchogenic malignancies. 2. Multiple scattered nodular and groundglass patchy airspace opacities most pronounced within the lung bases. This is consistent with a pneumonia and likely represents acute on chronic aspiration. 3. Moderate to severe distention of the esophagus which is filled with debris and demonstrates a focal transition point at the gastroesophageal junction. This could be due to an underlying esophageal lesion or achalasia. Follow-up endoscopy recommended for further evaluation. 4. Left upper extremity edema with a 12 x 6 cm intramuscular hematoma within the left biceps. 5. 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 6. Colonic diverticulosis. No evidence for acute diverticulitis. 7. Additional findings as described above.
[2022-02-04] MEDS: ATORVASTATIN 40 MG TAB PO SCH (20:01)
[2022-02-05] MEDS: PIPERACILLIN/TAZOBACTAM 3.375 GM in DEXTROSE 5% 100 ML IV SCH ×3 (04:13→22:04)
[2022-02-05] MEDS: INSULIN ASPART PER UNIT SC SCH ×4 (04:17→17:58)
[2022-02-05] MEDS: TRIHEXYPHENIDYL HCL 2 MG TAB PO SCH ×2 (05:11→13:52)
[2022-02-05 08:43] LABS: Basophils # (auto) 0.01 K/uL (0-0.2); Basophils % (auto) 0.2 %; Immature Granulocytes # (auto) 0.04 K/uL (0.00-0.02); Immature Granulocytes % (auto) 0.6 %; Lymphocytes # (auto) 0.33 K/uL (1.2-3.4); Mean Corpuscular Hemoglobin 31.1 pg (25.0-34.0); Mean Corpuscular Hgb Conc 33.3 g/dL (32.0-36.0); Mean Corpuscular Volume 93.3 fL (80.0-100.0); Mean Platelet Volume 10.4 fL (9.4-12.4); Monocytes # (auto) 0.49 K/uL (0.24-0.82); Monocytes % (auto) 7.5 %; Neutrophils # (auto) 5.68 K/uL (1.4-6.5); Neutrophils % (auto) 86.7 %; Platelet Count 165 K/uL (130-400); RDW Coefficient of Variation 13.7 % (11.5-14.5); RDW Standard Deviation 46.8 fL (36.4-46.3); Red Blood Count 2.25 M/uL (4.63-6.08); White Blood Count 6.55 K/ul (4.8-10.8)
[2022-02-05] MEDS: FLUTICASONE FUROATE 200MCG 14 PUFFS/INHALER INH SCH (08:51)
[2022-02-05] MEDS: DOCUSATE SODIUM 100 MG CAP PO SCH ×2 (08:51→22:18)
[2022-02-05] MEDS: FAMOTIDINE 20 MG TAB PO SCH (08:51)
[2022-02-05] MEDS: guaiFENesin SUGAR FREE 100 MG/5 ML UDC PO SCH ×4 (08:51→22:18)
[2022-02-05] MEDS: LANTUS PER UNIT CHARGE SQ SCH (08:51)
[2022-02-05] MEDS: dexAMETHasone 6 MG in SYRINGE 0 ML IV SCH (08:52)
[2022-02-05] MEDS: risperiDONE 2 MG TABLET PO SCH ×2 (08:52→22:18)
[2022-02-05] MEDS: NEPHROCAPS PO SCH (08:52)
[2022-02-05] MEDS: SODIUM CHLORIDE 0.9% 1000ML 1,000 ML IV SCH (08:52)
[2022-02-05 09:08] LABS: Echinocytes 1+
[2022-02-05] MEDS: MoRPHine SULFATE 2 MG/ML CARP IV PRN ×3 (09:08→22:05)
[2022-02-05 09:09] LABS: BUN Creatinine Ratio 28.2 (10-20); Calcium 9.5 mg/dl (8.5-10.1); Creatinine Clr Calc Pharmacy 33.7 ml/min; Est GFR (African American) 71.1 ml/min; Est GFR (Non-African American) 61.3 ml/min; Potassium 4.3 mmol/L (3.5-5.1)
[2022-02-05] MEDS ORDERED: SCOPOLAMINE 1 MG TDSY TD SCH (09:30)
[2022-02-05] MEDS ORDERED: LORazepam 0.5 MG in SYRINGE 0 ML IV PRN (11:52)
[2022-02-05] MEDS: DOXYCYCLINE HYCLATE 100 MG in DEXTROSE 5% 100 ML IV SCH ×2 (12:45→13:51)
[2022-02-05] MEDS: GLYCOPYRROLATE 0.2 MG/ML VIAL IV PRN (12:46)
--- NOTE | 2022-02-05 14:08 | Palliative Care Consultation ---
Date of Consultation February 05, 2022 Assessment & Plan (1) Dyspnea: He has been receiving prn morphine which is effective. His daughter is concerned about him receiving morphine until family arrives because her understanding is that he will stop breathing if he receives morphine. We talked extensively about use of opioids to relieve symptoms and that we are using low doses which have been effective for him. While opioids can impact respiratory rate and blood pressure. He is tolerating current dosing which is comparatively low. Goal is to treat symptoms with lowest effective dose. He has respiratory compromise with aspiration pneumonia, covid and SUJEY mass which can all potentially lead to independent of opioids. (2) Pain: He would be likely to have pain with [place] syndrome but denies pain currently. (3) Terminal respiratory secretions: with covid and aspiration pneumonia. Given his history of schizophrenia, would rotate to glycopyrrolate for secretions which would be less likely to cause cognitive anticholinergic effects. (4) Palliative care encounter: Rahul is not able to participate in goals of care discussion. I spoke with his daughter, Dee, at bedside. We talked about her understanding of his illness. She tells me that she does not expect him to survive to leave the hospital. I asked her if he had ever talked about what he would want for his care if he were seriously ill. She tells me that he did not. She tells me that the most important thing to him is his grandson, with whom he is very close. She does not feel that he would consider being debilitated or being in an SNF as quality of life. She tells me that they had already decided that he would not want extensive workup or treatment for the SUJEY mass. We discussed shift of focus for care to symptom management and comfort, rather than disease management. She is initially hesitant about this and tells me that she would want to call family and see if they want to come and see him first. I asked her what her concerns were and she expressed concern that he would with opioid dosing. We reviewed opioid use for symptom management as above. She ultimately will want comfort care for him but does want to talk with other family members first. 1500 Checked on Rahul who is now comfortable after dose of morphine. Daughter not in room 1630 Spoke with daughter who has spoken with family and they are considering taking him home on hospice. She is familiar with hospice from a previous experience with a family member who of cancer. She lives next door to him and two brothers live very close by. She asked about prognosis which is likely a matter of days at this time. I did express some concern about whether he would be stable for transfer home to [place]. Family would be better able to be with him at home. We discussed the process of setting up hospice and can initiate that tomorrow. Will reassess Rahul in the morning to see if he would be stable enough for transfer. Dee is agreeable to this. Case management notified. History of Present Illness Reason for Consultation: symptom management, goals of care Requesting Physician: Dr. Mitchell Attending Physician: Luis Miguel Mitchell MD History of Present Illness 86 yo gentleman with multiple medical problems including, diastolic heart failure, CAD, hyperparathyroidism, CKD, Parkinson's disease, [place] syndrome and schizophrenia. He presented with shortness of breath and was positive for Covid 19. History indicates that he has had progressive decline over the last few months with decreased appetite, aspiration and weakness. He had been having recurrent falls and was at [facility] for rehab prior to admission. His daughter, Dee, is at bedside. She tells me that prior to this, he had been doing well and was "getting around on his own". She has been living with him or right next door. He is also noted to have a SUJEY mass, concerning for malignancy on CT done at [facility] and was going to be getting a PET/CT scan. Despite treatment with antibiotics and steroids for Covid and aspiration pneumonia, he continues to have respiratory distress. He is lethargic but arousable. His speech is unintelligible to me but his daughter tells me that he answers no when asked if he is having pain or shortness of breath and yes when asked if he is comfortable. Allergies Allergy/AdvReac Type Severity Reaction Status Date / Time No Known Allergies Allergy Unverified 02/03/22 16:08 Home Medications Medication Instructions Recorded Confirmed Type aspirin 81 mg chewable tablet 81 mg PO DAILY 02/03/22 02/03/22 History (Aspirin Childrens) atorvastatin 40 mg tablet 40 mg PO HS 02/03/22 02/03/22 History cholecalciferol (vitamin D3) 50 50 mcg PO DAILY 02/03/22 02/03/22 History mcg (2,000 unit) capsule (Vitamin D3) docusate sodium 100 mg capsule 100 mg PO BID 02/03/22 02/03/22 History enoxaparin 40 mg/0.4 mL 40 mg subcut DAILY 02/03/22 02/03/22 History subcutaneous syringe famotidine 20 mg tablet 20 mg PO DAILY 02/03/22 02/03/22 History fluticasone furoate 200 1 inh inhalation DAILY 02/03/22 02/03/22 History mcg/actuation blister powder for inhalation guaifenesin 100 mg/5 mL oral liquid 300 mg PO QID 02/03/22 02/03/22 History risperidone 4 mg tablet 4 mg PO Q12 02/03/22 02/03/22 History trihexyphenidyl 2 mg tablet 2 mg PO Q8 02/03/22 02/03/22 History vitamin B complex and vitamin C 1 cap PO DAILY 02/03/22 02/03/22 History no.20-folic acid 1 mg capsule (Renal Caps) Patient History Medical History CKD (chronic kidney disease) Hyperlipidemia Lung mass Recurrent falls Schizophrenia Family History Other Family history non-contributory Social History Smoking Status: Former smoker Do You Dip or Chew Tobacco: No; Hx Alcohol Use: No Hx Substance Use: No Communication Ability: Impaired Beliefs That Will Affect Care: None Current Living Situation: Jail and Rehab Other Information That Helps Us Care for You: No Assistive Devices: Walker Review of Systems Review of Systems: Unobtainable due to cognitive status Physical Exam 2 Constitutional: + ill appearing and + thin ENMT: Mouth: + dry oral mucous membranes Respiratory: + respiratory distress, + labored breathing, + uses accessory muscles and + tachypneic Cardiovascular: Rate/Rhythm: + tachycardic Gastrointestinal (Abdomen): nontender Musculoskeletal: Extremities: + muscle atrophy Skin: extensive ecchymosis LUE Neurologic: lethargic Results & Data ([facility]) Vital Signs (Past 12 Hours) Vital Signs Temp Pulse Pulse Resp BP Pulse Ox O2 Del Method 02/05/22 12:46 97.5 F L 110 H 28 H 143/73 H 99 Oxymask 02/05/22 11:41 Oxymask 02/05/22 11:41 84 02/05/22 09:04 92 H 36 H 99 Oxymask 02/05/22 07:35 97.5 F L 90 24 152/73 H 99 Oxymask 02/05/22 02:59 97.3 F L 87 20 154/74 H 98 Oxymask O2 Flow Rate 02/05/22 12:46 5 02/05/22 11:41 5 02/05/22 11:41 02/05/22 09:04 5 02/05/22 07:35 5 02/05/22 02:59 5 PG Care Time/CCT Total # of Minutes Spent Total Time Spent: 93 Total Time Spent with Patient: Total time spent is greater than 50% in coordination of care (as documented) at patient's floor/unit and/or counseling patient: symptom management, goals of care, hospice, prognosis, family education and support, coordination of care Coding Level of Care Code 60050 Initial Inpt Care Lvl 3 Diagnoses Dyspnea R06.00 Pain R52 Terminal respiratory secretions R09.89 Palliative care encounter Z51.5
--- NOTE | 2022-02-05 15:34 | Hospitalist Progress Note ---
Date of Service February 05, 2022 Assessment & Plan (1) Acute respiratory failure: Plan: Admitting service notes with addendum: ASSESSMENT AND PLAN: This is an 86-year-old male who presents with acute respiratory distress. 1. Acute hypoxic respiratory failure Likely secondary to underlying aspiration pneumonia, lung cancer, COVID-19 infection history of recent diagnosis of lung cancer, not worked up, and CAT scan is showing aspiration pneumonitis, possible achalasia versus esophageal lesion, [id number] aspiration. Currently, the patient placed on CPAP. DNR/DNI as per discussion with the family. Placed on IV Zosyn and IV doxycycline. Will follow the cultures. Follow the response. Nebs p.r.n. and consult pulmonary in the a.m. Speech evaluation. -Currently on oxygen mask - continue doxycycline plus Zosyn - Continue Decadron Pulmonary service consulted, discussed with RIKY Castillo, patient's family leaning towards comfort measures, would like to discuss with palliative care service As needed morphine ordered for shortness of breath, pain, discussed with patient's daughter at the bedside, informed patient may be drowsy after receiving morphine, she is understanding, would like family members to visit patient first prior to giving morphine --Currently on as needed morphine Palliative care service consulted, patient's daughter would still like to discuss with other family members regarding proceeding with comfort measures 2. He is COVID positive. It looks like he has been vaccinated, but not boosted as per the records On Decadron 3. Elevated lactic acid, possible sepsis, possible underlying cancer. Getting fluids and antibiotics. Will monitor. Blood pressure is stable, could be also from being short of breath and tachypnea.Getting fluids. Given IV fluids Lactic acid normalized 4. Left upper extremity hematoma: Currently, holding anticoagulation. Monitor hemoglobin 5. Hyperlipidemia: On statin. 6.. History of coronary artery disease: Hold aspirin given left upper extremity hematoma 7. History of Parkinson's: On trihexyphenidyl. 8. Acute kidney injury on chronic kidney disease stage III: Baseline creatinine is around 1.2, currently 1.9. Will avoid nephrotoxic agents. Getting fluids. Will follow the repeat labs in the a.m. -Creatinine improved to 1.1 9. Oesophageal lesion -- GI consulted 10. Deep venous thrombosis prophylaxis: Sequential compression devices for now. DISPOSITION: Closely monitor in tele floor. Code status DNR/DNI. plan of care discussed with patient's daughter at the bedside in detail and at length all questions answered They are understanding, agreeable, comfortable with the plan of care Admission and Anticipated Discharge Date Admission Date: February 03, 2022 Subjective ff up for acute hypoxic respiratory failure, etc. Seen resting in bed, on oxygen mask Positive tachypnea, but not in respiratory distress No signs of pain Patient is nonverbal, drowsy No other issues per banquet bartender of Systems Review of Systems: all noted and negative except for above Physical Exam Physical Exam: General-drowsy, not in distress, speak breathing with some accessory muscle use Eyes- anicteric Neck- no JVD Lungs-positive crackles bilaterally, no wheezes Heart- normal rate, regular rhythm; no murmurs Abdomen- normal bowel sounds, nondistended, soft, nontender Extremities- no pretibial edema, no calf tenderness Neuro-. Drowsy Skin- warm & dry Results & Data Results & Data ([facility]) Vital Signs (Past 12 Hours) Vital Signs Temp Pulse Pulse Resp BP Pulse Ox O2 Del Method 02/05/22 12:46 36.4 C L 110 H 28 H 143/73 H 99 Oxymask 02/05/22 11:41 Oxymask 02/05/22 11:41 84 02/05/22 09:04 92 H 36 H 99 Oxymask 02/05/22 07:35 36.4 C L 90 24 152/73 H 99 Oxymask O2 Flow Rate 02/05/22 12:46 5 02/05/22 11:41 5 02/05/22 11:41 02/05/22 09:04 5 02/05/22 07:35 5 all noted and reviewed including below
[2022-02-05] MEDS ORDERED: CHECK SCOPOLAMINE PATCH PLACEMENT SCH (16:00)
[2022-02-05] MEDS: ATORVASTATIN 40 MG TAB PO SCH (22:18)
[2022-02-06] MEDS: DOXYCYCLINE HYCLATE 100 MG in DEXTROSE 5% 100 ML IV SCH (00:20)
[2022-02-06] MEDS: GLYCOPYRROLATE 0.2 MG/ML VIAL IV PRN ×2 (00:20→09:48)
[2022-02-06] MEDS: TRIHEXYPHENIDYL HCL 2 MG TAB PO SCH ×2 (00:27→05:58)
[2022-02-06] MEDS: INSULIN ASPART PER UNIT SC SCH ×2 (00:27→05:57)
[2022-02-06] MEDS: METOPROLOL TARTRATE 1 MG/ML VIAL IV PRN ×2 (00:41→10:01)
[2022-02-06] MEDS: MoRPHine SULFATE 2 MG/ML CARP IV PRN ×4 (01:32→20:26)
[2022-02-06] MEDS ORDERED: METOPROLOL TARTRATE 1 MG/ML VIAL IV STA (02:12)
[2022-02-06] MEDS ORDERED: FUROSEMIDE INJ 20 MG/2 ML VIAL IV ONE (02:12)
[2022-02-06] MEDS ORDERED: dexAMETHasone 6 MG in SYRINGE 0 ML IV SCH (02:15)
[2022-02-06] MEDS: dexAMETHasone 6 MG in SYRINGE 0 ML IV SCH (02:55)
[2022-02-06 03:01] LABS: Base Excess ABG -1.8 mEq/L (-9-1.8); Basophils # (auto) 0.01 K/uL (0-0.2); Basophils % (auto) 0.1 %; HCO3 ABG 24 mmol/L (19-24); Hematocrit (blood only) 26.5 % (40.1-51.0); Hemoglobin 8.7 g/dl (14.0-18.0); Immature Granulocytes # (auto) 0.16 K/uL (0.00-0.02); Immature Granulocytes % (auto) 1.2 %; Lymphocytes # (auto) 0.55 K/uL (1.2-3.4); Mean Corpuscular Hemoglobin 31.1 pg (25.0-34.0); Mean Corpuscular Hgb Conc 32.8 g/dL (32.0-36.0); Mean Corpuscular Volume 94.6 fL (80.0-100.0); Mean Platelet Volume 10.1 fL (9.4-12.4); Monocytes # (auto) 1.14 K/uL (0.24-0.82); Monocytes % (auto) 8.2 %; Neutrophils # (auto) 11.97 K/uL (1.4-6.5); Neutrophils % (auto) 86.5 %; PCO2 ABG 42 mmHg (35-46); PO2 ABG 126 mmHg (80-95); Platelet Count 296 K/uL (130-400); RDW Coefficient of Variation 13.9 % (11.5-14.5); White Blood Count 13.83 K/ul (4.8-10.8); pH ABG 7.36 (7.35-7.45)
[2022-02-06 03:06] LABS: Allen Test POS (Pos)
[2022-02-06 03:14] LABS: Partial Thromboplastin Ratio 0.8; Partial Thromboplastin Time 22.4 Seconds (21.0-31.0)
[2022-02-06 03:19] LABS: BUN Creatinine Ratio 34.2 (10-20); Calcium 10.3 mg/dl (8.5-10.1); Creatinine Clr Calc Pharmacy 32.5 ml/min; Est GFR (African American) 68.1 ml/min; Est GFR (Non-African American) 58.7 ml/min; Magnesium 2.2 mg/dl (1.7-2.4); Potassium 4.9 mmol/L (3.5-5.1)
--- NOTE | 2022-02-06 03:23 | Communication Note ---
Date of Service: February 06, 2022 Patient noted to be tachycardic around 2 AM as per RN. Heart rate 150s to 160s, SBP 170s. EKG as per my interpretation: Rate 160, A. fib, LAD, LAFB, ST depression in anterolateral leads AP New onset A. fib Lopressor [id number] Defer additional work-up to AM provider given possible transition to hospice as per a.m. note.
[2022-02-06] MEDS ORDERED: dilTIAZem HCl 5 MG/ML 5 ML VIAL IV STA (03:36)
[2022-02-06] MEDS: PIPERACILLIN/TAZOBACTAM 3.375 GM in DEXTROSE 5% 100 ML IV SCH (04:50)
[2022-02-06] MEDS ORDERED: METOPROLOL TARTRATE 1 MG/ML VIAL IV SCH (06:00)
[2022-02-06] MEDS ORDERED: DIGOXIN 250 MCG in SYRINGE 9 ML IV STA (06:26)
[2022-02-06] MEDS ORDERED: ALBUMIN 25% 100 mL 25 GM/100 ML VIAL IV ONE (06:30)
--- NOTE | 2022-02-06 08:42 | XRay Report ---
XR chest 1V portable HISTORY: Respiratory distress. COMPARISON: Chest CT 02/03/2022. FINDINGS: No pneumothorax. No pleural effusions. The heart remains mildly enlarged. Patchy bibasilar densities have slightly improved. The left upper and lower lobe spiculated masses/nodules are again n oted. No evidence for pulmonary edema. IMPRESSION: 1. Patchy bibasilar densities have slightly improved. 2. Redemonstration of the left lung spiculated nodules/masses. ACT 112: Negative or not required by law. Electronically signed by: Alo Zaragoza M.D. 02/06/2022 8:41 AM
[2022-02-06] MEDS: LANTUS PER UNIT CHARGE SQ SCH (09:32)
[2022-02-06] MEDS: risperiDONE 2 MG TABLET PO SCH (09:34)
[2022-02-06] MEDS: NEPHROCAPS PO SCH (09:34)
[2022-02-06] MEDS: FLUTICASONE FUROATE 200MCG 14 PUFFS/INHALER INH SCH (09:34)
[2022-02-06] MEDS: FAMOTIDINE 20 MG TAB PO SCH (09:34)
[2022-02-06] MEDS: DOCUSATE SODIUM 100 MG CAP PO SCH (09:34)
[2022-02-06] MEDS ORDERED: ONDANSETRON INJ 2 MG/ML 2 ML VIAL IV PRN (10:27)
--- NOTE | 2022-02-06 10:59 | Electrocardiogram Report ---
Test Reason : Blood Pressure : / mmHG Vent. Rate : 157 BPM Atrial Rate : 156 BPM P-R Int : 000 ms QRS Dur : 072 ms QT Int : 274 ms P-R-T Axes : 000 -46 045 degrees QTc Int : 442 ms Atrial fibrillation with rapid ventricular response Left axis deviation ST depression, consider subendocardial injury Abnormal ECG When compared with ECG of 03-FEB-2022 23:51, Atrial fibrillation has replaced Sinus rhythm ST now depressed in Lateral leads Nonspecific T wave abnormality, worse in Lateral leads Confirmed by Yan Wolf ([id number]) on 02/06/2022 10:59:17 AM Referred By: Zoila Calzada Confirmed By:Heraclio Wolf
--- NOTE | 2022-02-06 12:27 | Palliative Care Progress Note ---
Date of Service February 06, 2022 Assessment & Plan (1) Dyspnea: Plan: with covid and aspiration pneumonia. Continue morphine as needed for air hunger. I talked with his daughter about increased lethargy today and timing of morphine dosing. This is likely disease progression primarily. She is comfortable with continuing opioids prn. (2) Terminal respiratory secretions: Plan: Continue glycopyrrolate as needed. Explained role of medication to his daughter. (3) Palliative care encounter: Plan: Family had been hoping to take him home with hospice. I am concerned that he may not survive transport to [place]. I talked with Dee about this concern. She would prefer that he stay here, knowing that. She asked about pro gnosis which is likely only a few days. We talked about him not being able to take po medications at this time. I asked her how she felt about continuing antibiotics and she told me that she didn't think they were helping. She has already said that she would not want to continue finger stick glucose monitoring and insulin. We discussed using only medications for his comfort and what those would be. She is agreeable to this. Dr. Mitchell notified. Discussed with RN. Admission and Anticipated Discharge Date Admission Date: February 03, 2022 Subjective Unresponsive. Tolerating routine care. Now on IV lopressor after another episode of afib with RVR overnight. Last dose of morphine around midnight. 8mg morphine (24mg OME) last 24 hours. Review of Systems Review of Systems: Unobtainable due to reduced consciousness Physical Exam Constitutional: + cachectic ENMT: Mouth: + dry oral mucous membranes Respiratory: + uses accessory muscles audible tracheal secretions Cardiovascular: Rate/Rhythm: regular rate and regular rhythm Musculoskeletal: Extremities: + muscle atrophy Neurologic: + obtunded Results & Data ([facility]) Vital Signs (Past 12 Hours) Vital Signs Temp Pulse Pulse Pulse Resp BP BP 02/06/22 08:00 02/06/22 10:01 112 H 02/06/22 09:33 103 H 02/06/22 08:14 98.2 F 106 H 20 116/63 02/06/22 06:05 164 H 109/66 02/06/22 04:56 157 H 121/78 02/06/22 02:56 151 H 02/06/22 02:47 98.2 F 147 H 22 131/81 02/06/22 01:34 153 H 32 H 02/06/22 00:41 163 H Pulse Ox O2 Del Method O2 Flow Rate 02/06/22 08:00 Oxymask 4 02/06/22 10:01 02/06/22 09:33 02/06/22 08:14 98 Oxymask 4 02/06/22 06:05 02/06/22 04:56 02/06/22 02:56 02/06/22 02:47 98 Oxymask 4 02/06/22 01:34 02/06/22 00:41 PG Care Time/CCT Total # of Minutes Spent Total Time Spent: 41 Total Time Spent with Patient: Total time spent is greater than 50% in coordination of care (as documented) at patient's floor/unit and/or counseling patient:symptom management, goals of care, family education and support, coordination of care. Coding Level of Care Code 12642 Subseq Hosp Care Lvl 3 Diagnoses Dyspnea R06.00 Terminal respiratory secretions R09.89 Palliative care encounter Z51.5
--- NOTE | 2022-02-06 18:12 | Hospitalist Progress Note ---
Date of Service February 06, 2022 Assessment & Plan (1) Acute respiratory failure: Plan: Admitting service notes with addendum: ASSESSMENT AND PLAN: This is an 86-year-old male who presents with acute respiratory distress. 1. Acute hypoxic respiratory failure Likely secondary to underlying aspiration pneumonia, lung cancer, COVID-19 infection history of recent diagnosis of lung cancer, not worked up, and CAT scan is showing aspiration pneumonitis, possible achalasia versus esophageal lesion, [id number] aspiration. Currently, the patient placed on CPAP. DNR/DNI as per discussion with the family. Placed on IV Zosyn and IV doxycycline. Will follow the cultures. Follow the response. Nebs p.r.n. and consult pulmonary in the a.m. Speech evaluation. -Currently on oxygen mask - continue doxycycline plus Zosyn - Continue Decadron Pulmonary service consulted, discussed with RIKY Castillo, patient's family leaning towards comfort measures, would like to discuss with palliative care service As needed morphine ordered for shortness of breath, pain, discussed with patient's daughter at the bedside, informed patient may be drowsy after receiving morphine, she is understanding, would like family members to visit patient first prior to giving morphine --Currently on as needed morphine Palliative care service consulted, patient's daughter would still like to discuss with other family members regarding proceeding with comfort measures 02/06 Transition to comfort measures Morphine IV ordered, discussed with RN Continue as needed morphine, Ativan, glycopyrrolate 2. He is COVID positive. It looks like he has been vaccinated, but not boosted as per the records Was placed on Decadron 3. Elevated lactic acid, possible sepsis, possible underlying cancer. Getting fluids and antibiotics. Will monitor. Blood pressure is stable, could be also from being short of breath and tachypnea.Getting fluids. Given IV fluids Lactic acid normalized 4. Left upper extremity hematoma: Currently, holding anticoagulation. 5. Hyperlipidemia: 6.. History of coronary artery disease: Held aspirin given left upper extremity hematoma 7. History of Parkinson's:Was on trihexyphenidyl. 8. Acute kidney injury on chronic kidney disease stage III: Baseline creatinine is around 1.2, currently 1.9. Will avoid nephrotoxic agents. Getting fluids. Will follow the repeat labs in the a.m. -Creatinine improved to 1.1 9. Oesophageal lesion -- GI consulted Transition to comfort measures status Code status DNR/DNI. plan of care discussed with patient's family at the bedside in detail and at length all questions answered They are understanding, agreeable, comfortable with the plan of care Admission and Anticipated Discharge Date Admission Date: February 03, 2022 Subjective Follow-up for acute hypoxic respiratory failure, etc. Seen with family at the bedside visiting Patient obtunded On 4 L of oxygen via oxymask Tachypneic With accessory muscle use No signs of pain Review of Systems Review of Systems: all noted and negative except for above Physical Exam Physical Exam: General-obtunded, tachypneic Eyes- anicteric Neck- no JVD Lungs-positive crackles bilaterally anteriorly Heart- normal rate, regular rhythm; no murmurs Abdomen-nondistended Extremities- no pretibial edema, no calf tenderness Left upper extremity-significant edema with hematoma Neuro-obtunded Skin- warm & dry Results & Data Results & Data ([facility]) Vital Signs (Past 12 Hours) Vital Signs Temp Pulse Pulse Pulse Resp BP Pulse Ox 02/06/22 08:00 02/06/22 10:01 112 H 02/06/22 09:33 103 H 02/06/22 08:14 36.8 C 106 H 20 116/63 98 O2 Del Method O2 Flow Rate 02/06/22 08:00 Oxymask 4 02/06/22 10:01 02/06/22 09:33 02/06/22 08:14 Oxymask 4 all noted and reviewed including below
--- NOTE | 2022-02-07 07:58 | Discharge Summary ---
Discharge Summary Date of Service February 07, 2022 Notes For Next Care Provider Medication Changes From Visit patient Admission HPI Per Admitting Provider HISTORY OF PRESENT ILLNESS: An 86-year-old male with past medical history significant for hyperparathyroidism, hyperlipidemia, diaphragmatic hernia, diastolic CHF, CAD, GERD, protein calorie malnutrition, stage III chronic kidney disease,[place]- [place] syndrome, Parkinson disease, essential tremor, affective disorder, who presents with shortness of breath and respiratory distress. The patient was recently found to have a lung mass and plan for PET scan, but is falling repeatedly at home, currently at rehab, and family have him brought in because he was short of breath. The patient is not ambulating much. He is very weak. As per the family, since summer he is getting more weaker and is aspirating food for some time now. The patient is currently very drowsy. He opens eyes on calling, but not answering any questions. As per family, there was no fever, nausea, vomiting, or any complaints of pain, or any diarrhea. They said he was talking earlier. Family want him to be DNR/DNI. Currently, tachypn eic. ER placed him on BiPAP and he is somewhat resting comfortably.Patiet left upper extremity is somewhat swollen and ecchymotic and family says he told them he fell on it. Admission Exam Per Admitting Provider VITAL SIGNS: Temperature 36.6, pulse 109, respiratory rate 31, blood pressure 114/68, oxygen 96% on BiPAP. HEENT: Pupils are sluggish to react to light. Atraumatic. NECK: No JVD. No neck masses. CARDIOVASCULAR: S1 and S2 heard. Regular rate and rhythm. No murmur, no gallop. RESPIRATORY SYSTEM: Normal AP diameter. No accessory muscle use. No wheezing or crackles. ABDOMEN: Soft, bowel sounds present, nontender, no distention. CENTRAL NERVOUS SYSTEM: Drowsy, opens eyes on calling. EXTREMITIES: No edema, no erythema. Principal Dx & Hospital Course #1 = Principal Diagnosis (1) Acute respiratory failure: ASSESSMENT AND PLAN: This is an 86-year-old male who presents with acute respiratory distress. 1. Acute hypoxic respiratory failure Likely secondary to underlying aspiration pneumonia, lung cancer, COVID-19 infection history of recent diagnosis of lung cancer, not worked up, and CAT scan is showing aspiration pneumonitis, possible achalasia versus esophageal lesion, [id number] aspiration. -Required BiPAP mask, then transitioned to oxygen mask -Placed on doxycycline plus Zosyn -Also on Decadron Pulmonary service consulted, discussed with RIKY Castillo, patient's family leaned towards comfort measures, would like to discuss with palliative care service 02/06 Transitioned to comfort measures Morphine IV ordered, discussed with RN Continued as needed morphine, Ativan, glycopyrrolate Per RN notes: Patient ceased to breathe @ 2225, No auscultated breath sounds, absent heartbeat. Pupils non-reactive to light. Patient pronounced @ 2230. 2. COVID-19 infection Was placed on Decadron 3. Elevated lactic acid, possible sepsis, possible underlying cancer. Per above Given IV fluids Lactic acid normalized 4. Left upper extremity hematoma: Held anticoagulation. 5. Hyperlipidemia: 6.. History of coronary artery disease: Held aspirin given left upper extremity hematoma 7. History of Parkinson's:Was on trihexyphenidyl. 8. Acute kidney injury on chronic kidney disease stage III: Baseline creatinine is around 1.2, currently 1.9. Will avoid nephrotoxic agents. Getting fluids. Will follow the repeat labs in the a.m. -Creatinine improved to 1.1 9. Oesophageal lesion -- GI consulted, did not recommend intervention due to patient's acute status --Speech therapy also consulted next plan of care discussed with patient's family at the bedside in detail and at length all questions answered They are understanding, agreeable, comfortable with the plan of care Discharge Exam General-obtunded, tachypneic Eyes- anicteric Neck- no JVD Lungs-positive crackles bilaterally anteriorly Heart- normal rate, regular rhythm; no murmurs Abdomen-nondistended Extremities- no pretibial edema, no calf tenderness Left upper extremity-significant edema with hematoma Neuro-obtunded Skin- warm & dry Updated Medication List Medication Instructions Recorded Confirmed Type aspirin 81 mg chewable tablet 81 mg PO DAILY 02/03/22 02/03/22 History (Aspirin Childrens) atorvastatin 40 mg tablet 40 mg PO HS 02/03/22 02/03/22 History cholecalciferol (vitamin D3) 50 50 mcg PO DAILY 02/03/22 02/03/22 History mcg (2,000 unit) capsule (Vitamin D3) docusate sodium 100 mg capsule 100 mg PO BID 02/03/22 02/03/22 History enoxaparin 40 mg/0.4 mL 40 mg subcut DAILY 02/03/22 02/03/22 History subcutaneous syringe famotidine 20 mg tablet 20 mg PO DAILY 02/03/22 02/03/22 History fluticasone furoate 200 1 inh inhalation DAILY 02/03/22 02/03/22 History mcg/actuation blister powder for inhalation guaifenesin 100 mg/5 mL oral liquid 300 mg PO QID 02/03/22 02/03/22 History risperidone 4 mg tablet 4 mg PO Q12 02/03/22 02/03/22 History trihexyphenidyl 2 mg tablet 2 mg PO Q8 02/03/22 02/03/22 History vitamin B complex and vitamin C 1 cap PO DAILY 02/03/22 02/03/22 History no.20-folic acid 1 mg capsule (Renal Caps) Hospital Stay Data Consultations 02/03/22 20:22 ED Decision to Admit Stat 02/04/22 07:57 Consult Gastroenterology Routine 02/04/22 08:00 Consult Pulmonology Routine 02/04/22 16:10 Consult Palliative Care Routine 02/06/22 10:28 Consult Palliative Care Routine Diagnostic Imagining Performed 02/03/22 15:52 CT head/brain wo con Stat 02/03/22 18:08 CT chest diagnostic wo con Stat 02/03/22 18:09 CT abd pelvis wo con Stat Total Time Total Time Spent Total Time Spent (In Minutes): <30 minutes
== END 2022-02-06 23:42 | disposition expired | DRG 871 ==
LOC: ED 15:05 → 2S 21:17 → SUATTDRO 21:17 → 2S 21:57 → 2W 02-06 18:17